=== PATIENT | female | born 1960 | race Caucasian/White ===

== ENCOUNTER 2020-03-25 08:10 | Outpatient (CLI) | payer OTHER, SELFPAY ==
--- NOTE | ~2020-03-25 | MM_ITS ---
EXAMINATION: MM screening shanna BI w sally HISTORY: Screening TECHNIQUE: Craniocaudal and mediolateral oblique 3-D tomosynthesis images were obtained and synthetic 2-D images were generated. CAD analysis was submitted and interpreted. COMPARISON: Comparison to multiple prior studies sequentially, with oldest reviewed study dated 09/03. BREAST PARENCHYMAL COMPOSITION: There are scattered areas of fibroglandular density. FINDINGS: There is no evidence of suspicious mass, calcification, or architectural distortion to sugg est malignancy in either breast. There has been no suspicious interval change. IMPRESSION: 1. No mammographic evidence of malignancy. 2. Recommend routine screening mammography in one year. BI-RADS Category 1: Negative Reviewed, dictated and finalized at location A.
== END 2020-03-25 08:11 | disposition home or self-care (01) ==
LOC: ANHIMG 08:13
PROVIDERS: PCP Nurse Practitioner Adult Health; Visit Provider Nurse Practitioner Adult Health
DX: Z12.31 Encounter for screening mammogram for malignant neoplasm of breast (principal)
CPT/HCPCS: 77063; 77067

== ENCOUNTER → 2020-09-10 15:59 | Outpatient (CLI) | payer OTHER, SELFPAY ==
--- NOTE | ~2020-09-10 | US_ITS ---
EXAMINATION: US soft tissue head and neck DATE: 09/10/2020 16:23 INDICATION: Right supraclavicular lump. TECHNIQUE: Multiple grayscale and Doppler ultrasound images of the right neck were obtained. COMPARISON: None FINDINGS: There is no abnormal mass or lymphadenopathy in the patient's area of concern in the right supraclavicular region. IMPRESSION: 1. No abnormal mass or lymphadenopathy in the patient's area of concern in the right supraclavicular region. Reviewed, dictated and finalized at location B. PER BEATER
== END ==
PROVIDERS: PCP Nurse Practitioner Adult Health; Visit Provider Nurse Practitioner Adult Health
DX: M79.9 Soft tissue disorder, unspecified (principal)
CPT/HCPCS: 76536

== ENCOUNTER → 2021-07-09 16:09 | Outpatient (CLI) | payer OTHER, SELFPAY ==
--- NOTE | ~2021-07-09 | MM_ITS ---
EXAMINATION: MM screening shanna BI w sally HISTORY: Screening mammogram TECHNIQUE: Craniocaudal and mediolateral oblique 3-D tomosynthesis images were obtained and synthetic 2-D images were generated. CAD analysis was submitted and interpreted. COMPARISON: 10/24/1999200903/20/2019, 03/10/2018 bilateral screening mammogram examinations BREAST PARENCHYMAL COMPOSITION: There are scattered areas of fibroglandular density. FINDINGS: There is no evidence of suspicious mass, calcification, or architectural distortion to sugg est malignancy in either breast. There has been no suspicious interval change. IMPRESSION: 1. No mammographic evidence of malignancy. 2. Recommend routine screening mammography in one year. BI-RADS Category 1: Negative Reviewed, dictated and finalized at location A. RERS HELPER
== END ==
PROVIDERS: PCP Nurse Practitioner Adult Health; Visit Provider Nurse Practitioner
DX: Z12.31 Encounter for screening mammogram for malignant neoplasm of breast (principal)
CPT/HCPCS: 77063; 77067

== ENCOUNTER 2022-10-06 16:32 | Outpatient (CLI) | payer OTHER, SELFPAY ==
--- NOTE | ~2022-10-06 | DEXA_ITS ---
Bone Density Report Name: VALORIE HENDRICKS Age: 62 Sex: Female Ethnicity: White Date of : 1960 Indication: postmenopausal; screening for osteoporosis; height loss; prior fracture; Referring Provider: LEDA, DASHAWN Study: Bone densitometry was performed. Exam Date: October 06, 2022 Accession number: [id number] Bone Density: Region BMD T-score Z-score Classification AP Spine(L1-L4) 0.859 -1.7 -0.1 Osteopenia Femoral Neck (Left) 0.781 -0.6 0.8 Normal Total Hip (Left) 0.994 0.4 1.5 Normal Femoral Neck (Right) 0.707 -1.3 0.1 Osteopenia Total Hip (Right) 0.894 -0.4 0.7 Normal Total Hip Mean 0.944 0.0 1.1 Normal World Health Organization criteria for BMD impression classify patients as: Normal (T-score at or above -1.0), Osteopenia (T-score between -1.0 and -2.5), or Osteoporosis (T-score at or below -2.5). 10-year Fracture Risk(1): Major Osteoporotic Fracture 12% Hip Fracture 0.9% Reported Risk Factors: [place] (), Neck BMD=0.707, BMI=36.3, previous fracture (1) FRAX(R) Version 3.08. Fracture probability calculated for an untreated patient. Fracture probability may be lower if the patient has received treatment. Clinical Information Provided by Patient: Has had a low trauma fracture Has used the following medications: Vitamin D Patient maximum height was 62 Menopause Age: 54 No regular weight bearing exercise Drinks caffeinated beverages Onset of menses at age 12 Number of children 1 Impression: The patient has low bone mass, based on the Total Spine T-score. The patient has an estimated ten-year risk of hip fracture of 0.9% and an estimated ten-year risk of major fracture of 12%, based on the WHO FRAX algorithm. The patient has risk factors, including: previous fracture. Discussion: BONE DENSITY IS LOW AT ONE OR MORE SKELETAL SITES. This patient's lowest T-score is low at one or more skeletal sites. It meets the World Health Organization's (WHO) criteria for ?low bone mass? (T-score between -1.0 and -2.5). The patient's 10-year risk of fracture as calculated by FRAX is less than the threshold where pharmacological therapy is recommended by the National Osteoporosis Foundation (NOF). However, all treatment decisions require clinical judgment and consideration of individual patient factors, including patient preferences, comorbidities, previous drug use, risk factors not captured in the FRAX model (e.g., frailty, falls, vitamin D deficiency, increased bone turnover, interval significant decline in bone density) and possible under or overestimation of fracture risk by FRAX. The patient should follow a healthful lifestyle (good nutrition with adequate calcium and vitamin D, and appropriate weight-bearing exercise). Follow-Up: Consider repeating this stud
--- NOTE | ~2022-10-06 | MM_ITS ---
EXAMINATION: MM screening shanna BI w sally HISTORY: Screening mammogram TECHNIQUE: Craniocaudal and mediolateral oblique 3-D tomosynthesis images were obtained and synthetic 2-D images were generated. CAD analysis was submitted and interpreted. COMPARISON: No prior mammogram is available for comparison at this institution. BREAST PARENCHYMAL COMPOSITION: There are scattered areas of fibroglandular density. FINDINGS: There is no evidence of suspicious mass, calcification, or architectural distortion to sugg est malignancy in either breast. There has been no suspicious interval change. IMPRESSION: 1. No mammographic evidence of malignancy. 2. Recommend routine screening mammography in one year. BI-RADS Category 1: Negative Reviewed, dictated and finalized at location A. DENTIAL TREATMENT SPECIALIST
== END 2022-10-06 16:33 | disposition home or self-care (01) ==
PROVIDERS: PCP Nurse Practitioner Adult Health; Visit Provider Nurse Practitioner
DX: Z12.31 Encounter for screening mammogram for malignant neoplasm of breast (principal); M85.88 Other specified disorders of bone density and structure, other site; M85.851 Other specified disorders of bone density and structure, right thigh
CPT/HCPCS: 77063; 77067; 77080

== ENCOUNTER 2022-11-18 08:02 | Emergency (ER) | payer OTHER, SELFPAY ==
[2022-11-18 08:08] VITALS: BP 133/74; PULSE 75; RESP 16; TEMP 36.4; O2SAT 100
--- NOTE | 2022-11-18 08:13 | ED.EYEPROB ---
HPI - Eye Problem General Chief complaint: Eye Problems Stated complaint: Eye Problem Time Seen by Provider: 11/18/22 08:14 Source: patient, RN notes reviewed and old records reviewed Mode of arrival: ambulatory Limitations: no limitations History of Present Illness HPI Narrative: 62-year-old female who presents to [facility] with complaints of left eye irritation redness and drainage of yellowish green which started last night. 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 Patient states she has been using warm compresses to her eyes for comfort measures and to remove drainage. Patient states this morning she notices also that the right eye his starting to get red but has not had any drainage from right eye yet. visual acuity 20/40 bilateral eyes without use of contacts which she removed last night. MD chief complaint: eye redness and other (Drainage) Onset (ago): day(s) (Last night) Onset description: sudden Severity scale (1-10): 4 Treatments Prior to Arrival: other (Warm compresses) Related Data Home Medications Medication Instructions Recorded Confirmed atorvastatin 10 mg tablet 10 mg PO DAILY 06/11/20 11/18/22 ergocalciferol (vitamin D2) 1,250 50,000 unit PO WEEKLY 06/11/20 11/18/22 mcg (50,000 unit) capsule hydrochlorothiazide 12.5 mg tablet 12.5 mg PO DAILY 06/11/20 11/18/22 hydroxychloroquine 200 mg tablet 200 mg PO BID 06/11/20 11/18/22 (Plaquenil) levothyroxine 88 mcg tablet 88 mcg PO DAILY 06/11/20 11/18/22 metoprolol tartrate 25 mg tablet 12.5 mg PO DAILY 06/11/20 11/18/22 olmesartan 40 mg tablet 40 mg PO DAILY 06/11/20 11/18/22 Allergies Allergy/AdvReac Type Severity Reaction Status Date / Time ciprofloxacin [From Cipro] AdvReac Intermediate Nausea and Verified 11/18/22 08:18 Vomiting Review of Systems Review of Systems: CONSTITUTIONAL: Denies fever, chills, or sweats. EYES: Denies visual changes. Reports redness,, irritation, discharge to bilateral eyes, especially left. ENT: Denies rhinorrhea, congestion, sore throat, or otalgia. CARDIOVASCULAR: Denies chest pain, palpitations, or edema. RESPIRATORY: Denies cough or dyspnea. SKIN: Denies rash or itching. NEUROLOGIC: Denies headache All systems reviewed & are unremarkable except as noted in HPI and below PMFSH Past Medical History Medical History Hypertension Family History Family History Father Carcinoma of colon Patient's father is Mother Family history of malignant neoplasm of breast in first degree relative Patient's mother is Social History Social History Smoking status: Never smoker Alcohol intake: never Substance use: never Substance use type: does not use Comments At time of signature, agree with nursing past medical, surgical, social and family history. There is no relevant family history pertinent to the presenting complaint Exam Narrative: GENERAL: Well-appearing, well-nourished, and in no acute distress. HEAD: Normocephalic, atraumatic. EYES: PERRLA and EOMI. Upper and lower eyelids unremarkable. No periorbital cellulitis noted. Sclera and conjunctivae injected bilateral eyes with yellow greenish drainage from left eye ENT: Nares clear, no rhinorrhea or epistaxis. Mucous membranes moist. NECK: Supple.no lymphadenopathy CHEST: Clear to auscultation. No respiratory distress. HEART: Regular rate and rhythm. No murmur heard. Normal peripheral pulses. SKIN: Warm, dry, no rash. NEURO: No focal deficits. Alert and oriented x3. Course Course Emergency Course: Patient is aware of diagnosis, understands and agrees to treatment plan. Anticipatory guidance given. Patient agrees to follow-up as directed and is aware of reasons to seek care at the emergency department. Portions of this record may h
== END 2022-11-18 08:30 | disposition home or self-care (01) ==
PROVIDERS: Emergency Provider Registered Nurse; PCP Family Medicine
DX: H10.33 Unspecified acute conjunctivitis, bilateral (principal); I10 Essential (primary) hypertension
CPT/HCPCS: 99213; G0463

== ENCOUNTER 2023-02-24 15:40 | Outpatient (CLI) | payer OTHER, SELFPAY ==
[2023-02-24 16:25] LABS: Kit Draw Collected
== END 2023-02-24 15:41 | disposition home or self-care (01) ==
LOC: ANHGOSHLAB 15:41
PROVIDERS: PCP Internal Medicine; Visit Provider Clinical Nurse Specialist
DX: R82.998 Other abnormal findings in urine (principal)
CPT/HCPCS: 36415

== ENCOUNTER 2023-08-13 11:20 | Outpatient (CLI) | payer OTHER, SELFPAY ==
[2023-08-13 15:04] LABS: Basophils Absolute Auto 0.1 K/mm3 (0.0-0.1); Eosinophils Absolute Auto 0.1 K/mm3 (0-0.3); Eosinophils Percent Auto 2.2 % (0-4.4); Hematocrit 42.7 % (37.0-47.0); Hemoglobin 13.5 g/dL (12.0-15.0); Immature Granulocyte Absolute 0.01 K/mm3 (0.00-0.031); Immature Granulocyte Percent A 0.2 % (0-0.5); Lymphocytes Absolute Auto 1.32 K/mm3 (0.9-3.2); Lymphocytes Percent Auto 26.1 % (18.3-44.2); Mean Corpuscular HGB Conc 31.6 g/dl (32-36); Mean Corpuscular Hemoglobin 34.4 pg (26-34); Mean Corpuscular Volume 108.9 fl (80-100); Mean Platelet Volume 10.1 fl (7.4-10.4); Monocytes Absolute Auto 0.6 K/mm3 (0.1-0.6); Monocytes Percent Auto 11.7 % (2.6-8.5); Neutrophils Percent Auto 58.8 % (45.5-73.1); Platelet Count Result 273 k/mm3 (150-375); Red Blood Count 3.92 M/mm3 (4.2-5.4); Red Cell Distribution Width 12.2 % (11.5-14.5); White Blood Count 5.1 K/mm3 (4.5-10.0)
[2023-08-13 18:27] LABS: Alanine Aminotransferase 29 U/L (6-35); Albumin Level 4.6 g/dL (3.5-5.1); Alkaline Phosphatase 72 U/L (38-126); Anion Gap 10 mmol/L (8-16); Aspartate Amino Transferase 35 U/L (14-36); Bilirubin,Total 0.7 mg/dL (0.2-1.3); Blood Urea Nitrogen 20 mg/dL (7-17); CRP < 0.5 mg/dL (<1.0); Carbon Dioxide 30 mmol/L (22-30); Chloride 101 mmol/L (98-107); Estimated Glomerular Filt Rate > 60; Glucose 86 mg/dL (65-110); Potassium 3.7 mmol/L (3.4-5.0); Sodium 141 mmol/L (137-145)
[2023-08-13 19:44] LABS: Vitamin D 25 Hydroxy 45.5 ng/mL
== END 2023-08-13 11:21 | disposition home or self-care (01) ==
LOC: ANHGOSHLAB 11:25
PROVIDERS: PCP Internal Medicine
DX: M77.9 Enthesopathy, unspecified (principal); Z79.899 Other long term (current) drug therapy; I73.00 Raynaud's syndrome without gangrene; M06.09 Rheumatoid arthritis without rheumatoid factor, multiple sites
CPT/HCPCS: 36415; 80053; 82306; 85025; 86140

== ENCOUNTER 2023-11-09 16:17 | Outpatient (CLI) | payer OTHER, SELFPAY ==
--- NOTE | ~2023-11-09 | MM_ITS ---
EXAMINATION: MM screening shanna BI w sally HISTORY: Screening TECHNIQUE: Craniocaudal and mediolateral oblique 3-D tomosynthesis images were obtained and synthetic 2-D images were generated. CAD analysis was submitted and interpreted. COMPARISON: Comparison to multiple prior studies sequentially, with oldest reviewed study dated 03/08. BREAST PARENCHYMAL COMPOSITION: Not dense: There are scattered areas of fibroglandular density. FINDINGS: There is no evidence of suspicious mass, calcification, or architectural distortion to sugg est malignancy in either breast. There has been no suspicious interval change. IMPRESSION: 1. No mammographic evidence of malignancy. 2. Recommend routine screening mammography in one year. BI-RADS Category 1: Negative Reviewed, dictated and finalized at location A.
== END 2023-11-09 16:18 | disposition home or self-care (01) ==
PROVIDERS: PCP Internal Medicine; Visit Provider Nurse Practitioner
DX: Z12.31 Encounter for screening mammogram for malignant neoplasm of breast (principal)
CPT/HCPCS: 77063; 77067

== ENCOUNTER 2023-11-16 11:15 | Outpatient (CLI) | payer OTHER, SELFPAY ==
--- NOTE | ~2023-11-16 | XR_ITS ---
EXAMINATION: XR sternoclavicular joint BI INDICATION: Polyarthralgia TECHNIQUE: Three views of the sternoclavicular joints are obtained. COMPARISON: None available FINDINGS: Bone alignment is normal. There is no fracture. There is mild osteoarthritis of the sternoc lavicular joints. Orthopedic screws are noted in the bilateral mandibular bodies. IMPRESSION: 1. No acute osseous abnormality. Reviewed, dictated and finalized at location F.
--- NOTE | ~2023-11-16 | XR_ITS ---
XR hand LT 2V 11/16/2023 12:05 Indication: Polyarthralgias Procedure: 2 views left hand Comparison: No prior studies for comparison. Findings: There is mild polyarticular osteoarthritis. Osteopenia. No fracture or traumatic malalignme nt. No soft tissue abnormality. No foreign bodies. Impression: 1: Mild polyarticular osteoarthritis. Reviewed, dictated and finalized at location L. Impression: 1: Mild polyarticular osteoarthritis.
--- NOTE | ~2023-11-16 | XR_ITS ---
EXAMINATION: XR hand RT 2V INDICATION: Polyarthralgia TECHNIQUE: Two views of the right hand are obtained. COMPARISON: None available FINDINGS: Bone alignment is normal. There is no fracture. There is mild osteoarthritis of multiple in terphalangeal joints. The soft tissues are unremarkable. IMPRESSION: 1. Osteoarthritis without acute osseous abnormality. Reviewed, dictated and finalized at location F.
--- NOTE | ~2023-11-16 | XR_ITS ---
EXAMINATION: XR lumbar spine 2-3V DATE: 11/16/2023 12:05 INDICATION: Polyarthralgia TECHNIQUE: Anteroposterior and lateral views of the lumbar spine, and cone-down lateral view of the l umbosacral junction were obtained. COMPARISON: None. FINDINGS: There are 4 mm of anterolisthesis of L4 on L5 and 4 mm of retrolisthesis of L5 on S1. There is severe loss of intervertebral disc space height at L5-S1. There is mild loss of intervertebral di sc space height throughout the remainder of the lumbar spine. The vertebral body heights are maintain ed. There is moderate facet joint osteoarthritis of the lower lumbar spine. IMPRESSION: 1. Severe lower lumbar spondylosis. Reviewed, dictated and finalized at location F.
--- NOTE | ~2023-11-16 | XR_ITS ---
EXAMINATION: XR chest 2V 11/16/2023 12:05 INDICATION: TB screening PROCEDURE: 2 view chest COMPARISON: No prior studies for comparison. FINDINGS: The lungs are clear. The cardiomediastinal silhouette is within normal limits. There are no pleural effusions. There is no pneumothorax suspected. IMPRESSION: 1: NO ACUTE CARDIOPULMONARY DISEASE. Reviewed, dictated and finalized at location L.
--- NOTE | ~2023-11-16 | XR_ITS ---
EXAMINATION: XR sacroiliac joints min 3V INDICATION: Polyarthralgia TECHNIQUE: Three views of the sacroiliac joints are obtained. COMPARISON: None available FINDINGS: Bone alignment is normal. There is no fracture. No abnormal erosion or sclerosis of the sac roiliac joints. There is severe lumbar spondylosis at L5-S1. There is mild osteoarthritis of the hips . IMPRESSION: 1. Unremarkable sacroiliac joints. Reviewed, dictated and finalized at location F.
== END 2023-11-16 11:16 ==
PROVIDERS: Referring Provider Clinical Nurse Specialist; Visit Provider Physician Assistant Medical
DX: M25.50 Pain in unspecified joint (principal); Z11.1 Encounter for screening for respiratory tuberculosis; M19.041 Primary osteoarthritis, right hand; M47.896 Other spondylosis, lumbar region; M19.042 Primary osteoarthritis, left hand
CPT/HCPCS: 71046; 71130; 72100; 72202; 73120

== ENCOUNTER 2024-11-22 14:58 | Outpatient (CLI) | payer OTHER, SELFPAY ==
--- NOTE | ~2024-11-22 | DEXA_ITS ---
Bone Density Report Name: VALORIE HENDRICKS Age: 64 Sex: Female Ethnicity: White Date of : 1960 Indication: osteopenia; height loss; prior fracture; Referring Provider: LEDA*Martina, DASHAWN Study: Bone densitometry was performed. Exam Date: November 22, 2024 Accession number: [id number] Bone Density: Region BMD T-score Z-score Classification AP Spine(L1-L4) 0.857 -1.7 0.0 Osteopenia Femoral Neck (Left) 0.760 -0.8 0.7 Normal Total Hip (Left) 0.933 -0.1 1.1 Normal Femoral Neck (Right) 0.735 -1.0 0.4 Normal Total Hip (Right) 0.887 -0.5 0.7 Normal Total Hip Mean 0.910 -0.3 0.9 Normal World Health Organization criteria for BMD impression classify patients as: Normal (T-score at or above -1.0), Osteopenia (T-score between -1.0 and -2.5), or Osteoporosis (T-score at or below -2.5). 10-year Fracture Risk(1): Major Osteoporotic Fracture 12% Hip Fracture 0.8% Reported Risk Factors: [place] (), Neck BMD=0.735, BMI=37.2, previous fracture (1) FRAX(R) Version 3.08. Fracture probability calculated for an untreated patient. Fracture probability may be lower if the patient has received treatment. Previous Exams: Region Exam Age BMD T-score BMD Change BMD Change Date g/cm2 vs Baseline vs Previous AP Spine (L1-L4) 11/22/2024 64 0.857 -1.7 -0.057 (-6.2%) -0.003 (-0.3%) 10/06/2022 62 0.859 -1.7 -0.054 (-5.9%) -0.054 (-5.9%) 03/20/2019 58 0.914 -1.2 Total Hip(Left) 11/22/2024 64 0.933 -0.1 -0.084 (-8.3%) -0.061 (-6.1%) 10/06/2022 62 0.994 0.4 -0.023 (-2.3%) -0.023 (-2.3%) 03/20/2019 58 1.017 0.6 Total Hip(Right) 11/22/2024 64 0.887 -0.5 -0.048 (-5.1%) -0.008 (-0.8%) 10/06/2022 62 0.894 -0.4 -0.040 (-4.3%) -0.040 (-4.3%) 03/20/2019 58 0.934 -0.1 *Denotes significance at 95% confidence level, LSC for AP Spine = 0.022 g/cm2, LSC for Total Hip = 0.027 g/cm2 # Denotes dissimilar scan types or analysis methods Clinical Information Provided by Patient: Has had a low trauma fracture Has used the following medications: Vitamin D Patient maximum height was 62 Menopause Age: 54 No regular weight bearing exercise Drinks caffeinated beverages Onset of menses at age 12 Number of children 1 Impression: The patient has low bone mass, based on the Total Spine T-score. The patient has an estimated ten-year risk of hip fracture of 0.8% and an estimated ten-year risk of major fracture of 12%, based on the WHO FRAX algorithm. The patient has risk factors, including: previous fracture. No significant bone loss was observed. Discussion: BONE DENSITY IS LOW AT ONE OR MORE SKELETAL SITES. This patient's lowest T-score is low at one or more skeletal sites. It meets the World Health Organization's (WHO) criteria for ?low bone mass? (T-score between -1.0 and -2.5). The patient's 10-year risk of fracture as calculated by FRAX is less than the threshold where pharmacological therapy is recommended by the National Osteoporosis Foundation (NOF). However, all treatment decisions require clinical judgment and consideration of individual patient factors, including patient preferences, comorbidities, previous drug use, risk factors not captured in the FRAX model (e.g., frailty, falls, vitamin D deficiency, increased bone turnover, interval significant decline in bone density) and possible under or overestimation of fracture risk by FRAX. The patient should follow a healthful lifestyle (good nutrition with adequate calcium and vitamin D, and appropriate weight-bearing exercise). Follow-Up: Consider repeating this study in 2 to 3 years to reassess this patient's status, or sooner if there is some new clinical indication. Reported by: CHELA on 11/22/2024 3:29:00 PM. Reviewed, dictated and finalized at location ASimon LEWIS
--- NOTE | ~2024-11-22 | MM_ITS ---
EXAMINATION: MM screening shanna BI w sally HISTORY: Screening TECHNIQUE: Craniocaudal and mediolateral oblique 3-D tomosynthesis images were obtained and synthetic 2-D images were generated. CAD analysis was submitted and interpreted. COMPARISON: Comparison to multiple prior studies sequentially, with oldest reviewed study dated 03/10. BREAST PARENCHYMAL COMPOSITION: Not dense: There are scattered areas of fibroglandular density. FINDINGS: There is no evidence of suspicious mass, calcification, or architectural distortion to sugg est malignancy in either breast. There has been no suspicious interval change. IMPRESSION: 1. No mammographic evidence of malignancy. 2. Recommend routine screening mammography in one year. BI-RADS Category 1: Negative Reviewed, dictated and finalized at location A.
--- OUTSIDE RECORDS SUMMARY | 2024-11-22 16:20 | XMS_ITS | Continuity of Care Document ---
Author Organization [facility] Address [address] [place] [address] [address] [place] [address] Phone Care Team Providers Care Split Leather Mosser Name Role Phone Kash Green MD Unavailable [...] Visual Field Examination(s) SCODI, Retina Office/outpatient Visit, [facility] Advance Directives Directive Yes / No Effective Date File Name No Information Encounters Encounter Description Practice Location Reason(s) For Visit Diagnoses Date Provider Providers Copied on Encounter [facility], [address], [place], [place], [id number], [place] tel:[phone] [facility] ROSS Professional Complete Exam (chief complaint) High risk medication useOptic cupping of both eyesAge-relat ed nuclear cataract, bilateralPunc mcneill keratitis, left eye Fe-0 1 Peter Hewitt. [address] [facility], [address], [place], [place], [id number], [place]. tel:[phone] Specialist : Beatrice Calderon MD, [address], [place], [address]. tel:[phone] er Provider: Beatrice Calderon MD, [address] [place] [address], [address]. tel:[phone] erring Provider: Kash Andrews, [address] [facility] [address], [place], [address] . tel:[phone] Office/outpa tient Visit, [facility], [id number] [place] [address] [address], [place], [place], [id number], [place] tel:[phone] SEC [place] Professional evaluation (chief complaint) High risk medication useAge-relate d nuclear cataract, bilateralLesi on of right eyelidOptic cupping of both eyes 0 Peter Hewitt. [address] [facility], [address], [place], [place], [address], [place]. tel:[phone] Specialist : Beatrice Calderon MD, [address] [address], [place], [address]. tel:[phone] er Provider: Beatrice Calderon MD, [address] [address], [place], [address]. tel:[phone] erring Provider: Kash Andrews, [address] [facility] [address], [place], [address] . tel:[phone] [facility], [address], [place], [place], [id number], [place] tel:[phone] [facility] Professional No Information 0 Peter Hewitt. [address] [facility], [address], [place], [place], [address], [place]. tel:[phone] Family History Family Member Type Diagnosis Age At Onset Problem (finding) Family history of Retin al disease Problem (finding) Family history of glauc leatha Payers Payer name Insurance type Covered alliance party ID Authorguillermina patrick(s) [facility] Commercial CI [id number] Social History Type Description Quantity Date Captured [...]
--- OUTSIDE RECORDS SUMMARY | 2024-11-22 16:20 | XMS_ITS | Data Portability ---
Author Organization [place] [facility], Main Office Address [address] [place] [address] Care Team Providers Care Stunt Person Name Role Phone OSMANI MCCARTHY Primary Care Provider OSMANI MCCARTHY Referring Provider Assessment Encounter Date Assessment Date Assessment LastModified by Organization Details LastModified Time 11/03/2022 11/03/2022 62 yo F with - WELL ADULT VISIT - HTN - HLD - HYPOTHYROIDISM - RA - VIT D DEFICIENCY - OBSITY II Wt: 188(11/03/22) D/w pt in detail about her conditions and further plan of care. Will do routine labs. Meds as directed. Diet and exercise explained in detail. BP diary education given and call us if any concerns. Cont f/u with Rheumat at [facility] as per schedule. Cont f/u with Gyne as per schedule. HM: WWE - 08/13, normal as per pt. Cont f/u with Gyne as per schedule. Mammo - 10/15, normal as per pt. Colonoscopy - Pt to find out. DEXA - 10/15, normal as per pt. Flu - 06/13. Tdap - 2018. Pneumo - Pt declined. Shingrix - Pt got 2 shots. F/u in 1 month. Annual labs in 11/13. [email or web address] Not available 11/03/2022 17:59:45 12/01/2022 12/01/2022 62 yo F with - WT LOSS PROGRAM - HTN - HLD - HYPOTHYROIDISM - RA - VIT D DEFICIENCY - OBSITY I Annual labs: 11/23/22. Wt: 188(11/03/22) - 184(12/01/22) D/w pt in detail about her conditions, recent labs and further plan of care. Pt wants to continue Phentermine for few more months. Meds as directed. Diet and exercise explained in detail. BP diary education given and call us if any concerns. Cont f/u with Rheumat at [facility] as per schedule. Cont f/u with Gyne as per schedule. HM: WWE - 08/13, normal as per pt. Cont f/u with Gyne as per schedule. Mammo - 10/15, normal as per pt. Colonoscopy - 5 yrs ago. F/u with GI in few months. DEXA - 10/15, normal as per pt. Flu - 06/13. Tdap - 2018. Pneumo - Pt declined. Shingrix - Pt got 2 shots. F/u in 3 months. Annual labs in 11/13. [email or web address] Not available 12/01/2022 17:32:38 Plan of Treatment Reminders Order Date Submit Date Provider Last Modified By Organization Details Last Modified Time Details Appointments None recorded. Lab HbA1c (hemoglobin A1c), blood 2022 023 [facility], 2022 Taylor Zhao, [address], [place], [address], 3 01:32:37 CBC w/ auto diff 2022 023 [facility], 2022 Taylor Zhao, [address], [place], [address], 3 01:32:34 CMP, serum or plasma 2022 023 [facility], 2022 Taylor Zhao, [address], [place], [address], 3 01:32:33 lipid panel, serum 2022 023 [facility], 2022 Taylor Zhao, [address], [place], [address], 3 01:32:31 TSH, serum, reflex free T4 [email or web address] [place] [address], 2022 Taylor Zhao, [address], [place], [address], 08:46:47 urinalysis complete, reflex culture 2022 023 [facility], 2022 Taylor Zhao, [address], [address], 01:32:35 Referral None recorded. Procedures None recorded. Surgeries None recorded. Imaging None recorded. Medication Orders phentermine 37.5 mg tablet 2022 023 [id number], [address], [place], [id number], 17:24:42 metoprolol succinate ER 25 mg tablet,exte nded release 24 hr 2022 023 [facility], [address] [place] [address], [address], 3 17:24:33 olmesartan 40 mg-hydrochl orothiazide 12.5 mg tablet 2022 023 [facility], [address] [place] [address], [address], 3 17:24:36 levothyroxi ne 75 mcg tablet 2022 023 [facility], [address] [place] [address], [address], 3 17:24:36 atorvastati n 10 mg tablet 2022 023 [facility], [address] [place] [address], [address], 3 17:24:33 phentermine 37.5 mg tablet 2022 023 [facility], [address], [place], [id number], 17:42:38 Wegovy 0.25 mg/0.5 mL subcutaneou s pen injector 2022 023 [facility], [address] [place] [address], [address], 3 17:42:19 metoprolol succinate ER 25 mg tablet,exte nded release 24 hr 2022 023 [email or web address] [facility], [address] [place] [address], [address], 3 12:10:16 olmesartan 40 mg-hydrochl orothiazide 12.5 mg tablet 2022 023 [facility], [address] [place] [address], [address], 3 17:42:22 levothyroxi ne 75 mcg tablet 2022 023 [facility], [address] [place] [address], [place], [address], 3 17:42:19 atorvastati n 10 mg tablet 2022 023 [facility], [address] [place] [address], [address], 3 17:42:23 Patient TargetsNo targets recorded. Patient InstructionsNo instructions recorded. Reason for Referral None Reported. Results Created Date Observation Date Name Description Value Unit Range Abnormal Flag Note LastModifiedBy Organization Detail LastModifiedTime 06/06/20 22 06/09/2022 TSH TSH 1.65 mIU/L 0.40-4 .50 normal Not Available [facility] [address] [place], [address], 06/09/2022 03:57:46 06/06/20 22 06/09/2022 CBC (INCL UDES DIFF/ PLT) MCH 33.7 pg 27.0-3 3.0 high Not Available [address], [address], 06/09/2022 03:57:46 06/06/2006/09/2022 CBC (INCL UDES DIFF/ PLT) hemoglobin 12.8 g/dL 11.7-1 5.5 normal Not Available [address], [address], 06/09/2022 03:57:46 06/06/2006/09/2022 CBC (INCL UDES DIFF/ PLT) hematocrit 38.5 % 35.0-4 5.0 normal Not Available [address], [address], 06/09/2022 03:57:46 06/06/20 22 06/09/2022 CBC (INCL UDES DIFF/ PLT) MCV 101.3 fL 80.0-1 00.0 high Not Available [address], [address], 06/09/2022 03:57:46 06/06/2006/09/2022 CBC (INCL UDES DIFF/ PLT) MCHC 33.2 g/dL 32.0-3 6.0 normal Not Available [address], [address], 06/09/2022 03:57:46 06/06/20 22 06/09/2022 CBC (INCL UDES DIFF/ PLT) RDW 11.5 % 11.0-1 5.0 normal Not Available [address], [address], 06/09/2022 03:57:46 06/06/2006/09/2022 CBC (INCL UDES DIFF/ PLT) platelet count 242 thous and/u L 140-40 0 normal Not Available [address], [address], 06/09/2022 03:57:46 06/06/20 22 06/09/2022 CBC (INCL UDES DIFF/ PLT) MPV 9.9 fL 7.5-12 .5 normal Not Available [address], [address], 06/09/2022 03:57:46 06/06/2006/09/2022 CBC (INCL UDES DIFF/ PLT) absolute neutrophils 1897 cells /uL 1500-7 800 normal Not Available [address], [address], 06/09/2022 03:57:46 06/06/2006/09/2022 CBC (INCL UDES DIFF/ PLT) absolute lymphocytes 1106 cells /uL 850-39 00 normal Not Available [address], [address], 06/09/2022 03:57:46 06/06/2006/09/2022 CBC (INCL UDES DIFF/ PLT) absolute monocytes 329 cells /uL 200-95 0 normal Not Available [address], [address], 06/09/2022 03:57:46 06/06/20 22 06/09/2022 CBC (INCL UDES DIFF/ PLT) absolute eosinophils 130 cells /uL 15-500 normal Not Available [address], [address], 06/09/2022 03:57:46 06/06/20 22 06/09/2022 CBC (INCL UDES DIFF/ PLT) absolute basophils 39 cells /uL 0-200 normal Not Available [address], [address], 06/09/2022 03:57:46 06/06/20 22 06/09/2022 CBC (INCL UDES DIFF/ PLT) neutrophils 54.2 % normal Not Available [address] [place], [address], 06/09/2022 03:57:46 06/06/20 22 06/09/2022 CBC (INCL UDES DIFF/ PLT) lymphocytes 31.6 % normal Not Available [address], [address], 06/09/2022 03:57:46 06/06/2006/09/2022 CBC (INCL UDES DIFF/ PLT) monocytes 9.4 % normal Not Available [address], [address], 06/09/2022 03:57:46 06/06/2006/09/2022 CBC (INCL UDES DIFF/ PLT) eosinophils 3.7 % normal Not Available [address], [address], 06/09/2022 03:57:46 06/06/2006/09/2022 CBC (INCL UDES DIFF/ PLT) basophils 1.1 % normal Not Available [address], [address], 06/09/2022 03:57:46 06/06/2006/09/2022 CBC (INCL UDES DIFF/ PLT) white blood cell count 3.5 thous and/u L 3.8-10 .8 low Not Available [address], [address], 06/09/2022 03:57:46 06/06/20 22 06/09/2022 CBC (INCL UDES DIFF/ PLT) red blood cell count 3.80 stacie on/uL 3.80-5 .10 normal Not Available [address], [address], 06/09/2022 03:57:46 06/06/20 22 06/09/2022 SED RATE BY MODIF IED GREER MUNSONREN sed rate by modified westergren 2 mm/h < or = 30 normal Not Available [address], [address], 06/09/2022 03:57:45 06/06/2006/09/2022 BASIC METAB OLIC PANEL sodium 142 mmol/ L 135-14 6 normal Not Available [address], [address], 06/09/2022 03:57:45 06/06/2006/09/2022 BASIC METAB OLIC PANEL glucose 89 mg/dL 65-99 normal Fasti ng refer ence inter monty Not Available [address], [address], 06/09/2022 03:57:45 06/06/2006/09/2022 BASIC METAB OLIC PANEL urea nitrogen (BUN) 20 mg/dL 7-25 normal Not Available [address], [address], 06/09/2022 03:57:45 06/06/2006/09/2022 BASIC METAB OLIC PANEL creatinine 0.75 mg/dL 0.50-1 .05 normal Not Available [address], [address], 06/09/2022 03:57:45 06/06/2006/09/2022 BASIC METAB OLIC PANEL eGFR 91 mL/mi n/1.7 3m2 > or = 60 normal The eGFR is based on the CKD-E PI 2020 equat ion. To calcu late the new eGFR from a previ ous Creat inine or Cysta kraig C macho t, go to https ://treasure munson/criss fox/ kdoqi /gfr% 5Fcal culat or Not Available [address], [address], 06/09/2022 03:57:45 06/06/20 22 06/09/2022 BASIC METAB OLIC PANEL BUN/creatini ne ratio not applic able (calc ) 6-22 Not Available [address], [address], 06/09/2022 03:57:45 06/06/2006/09/2022 BASIC METAB OLIC PANEL potassium 4.4 mmol/ L 3.5-5. 3 normal Not Available [address], [address], 06/09/2022 03:57:45 06/06/2006/09/2022 BASIC METAB OLIC PANEL chloride 104 mmol/ L 98-110 normal Not Available [address], [address], 06/09/2022 03:57:45 06/06/2006/09/2022 BASIC METAB OLIC PANEL carbon dioxide 33 mmol/ L 20-32 high Not Available [address], [address], 06/09/2022 03:57:45 06/06/2006/09/2022 BASIC METAB OLIC PANEL calcium 9.8 mg/dL 8.6-10 .4 normal Not Available [address], [address], 06/09/2022 03:57:45 06/06/2006/09/2022 URIC ACID uric acid 5.4 mg/dL 2.5-7. 0 normal Thera peuti c targe t for gout patie nts: <6.0 mg/dL Not Available [address], [address], 06/09/2022 03:57:43 11/24/19 23 11/25/2022 LIPID PANEL , [place] cholesterol, total 184 mg/dL <200 normal Not Available [address], [address], 11/25/2022 01:32:28 11/24/19 23 11/25/2022 LIPID PANEL , [place] HDL cholesterol 77 mg/dL > or = 50 normal Not Available [address], [address], 11/25/2022 01:32:28 11/24/19 23 11/25/2022 LIPID PANEL , [place] triglyceride s 107 mg/dL <150 normal Not Available [address], [address], 11/25/2022 01:32:28 11/24/19 23 11/25/2022 LIPID PANEL , [place] LDL-choleste rol 87 mg/dL _(chio c) normal Refer ence range : <100 Juan able range <100 mg/dL for prima ry preve ntion ; <70 mg/dL for patie nts with CHD or diabe tic patie nts with > or = 2 CHD risk facto rs. LDL-C is now calcu lated using the Kayla n-Hop kins calcu latglenna n, which is a valid ated novel corby renee acrefugio than the Fried ela equat ion in the estim ation of LDL-C . Kayla strong SS et al. ALFONZO. 2013; 310(1 9): 2061- 2068 (http ://ed ucati on.Karoline tate Qualvu. com/f aq/FA Q164) Not Available [address], [address], 11/25/2022 01:32:28 11/24/19 23 11/25/2022 LIPID PANEL , [place] chol/HDLC ratio 2.4 (calc ) <5.0 normal Not Available [address], [address], 11/25/2022 01:32:28 11/24/19 23 11/25/2022 LIPID PANEL , [place] non HDL cholesterol 107 mg/dL _(chio c) <130 normal For patie nts with diabe omar plus 1 major ASCVD risk facto r, treat ing to a non-H DL-C goal of <100 mg/dL (LDL- C of <70 mg/dL ) is candacei nette amato optio n. Not Available [address] [address] [place], [address], 11/25/2022 01:32:28 11/24/19 23 11/25/2022 COMPR EHENS CHETAN METAB OLIC PANEL glucose 81 mg/dL 65-99 normal Fasti ng refer ence inter monty Not Available [facility] [address] [address] [place], [address], 11/25/2022 01:32:33 11/24/1911/25/2022 COMPR EHENS CHETAN METAB OLIC PANEL urea nitrogen (BUN) 22 mg/dL 7-25 normal Not Available [address] [address] [place], [address], 11/25/2022 01:32:33 11/24/19 23 11/25/2022 COMPR EHENS CHETAN METAB OLIC PANEL creatinine 0.85 mg/dL 0.50-1 .05 normal Not Available [address] [address] [place], [address], 11/25/2022 01:32:33 11/24/1911/25/2022 COMPR EHENS CHETAN METAB OLIC PANEL eGFR 77 mL/mi n/1.7 3m2 > or = 60 normal The eGFR is based on the CKD-E PI 2020 savannahat ion. To calcu late the new eGFR from a previ ous Creat inpriyanka or Cystmaida cornell C resul t, go to https ://treasure mnuson/criss fox/ kdoqi /gfr% 5Fcal culat or Not Available [address] [address] [place], [address], 11/25/2022 01:32:33 11/24/19 23 11/25/2022 COMPR EHENS CHETAN METAB OLIC PANEL BUN/creatini ne ratio NOT APPLIC ABLE (calc ) 6-22 Not Available [address], [address], 11/25/2022 01:32:33 11/24/19 23 11/25/2022 COMPR EHENS CHETAN METAB OLIC PANEL sodium 142 mmol/ L 135-14 6 normal Not Available [address], [address], 11/25/2022 01:32:33 11/24/19 23 11/25/2022 COMPR EHENS CHETAN METAB OLIC PANEL potassium 3.9 mmol/ L 3.5-5. 3 normal Not Available [address], [address], 11/25/2022 01:32:33 11/24/19 23 11/25/2022 COMPR EHENS CHETAN METAB OLIC PANEL chloride 102 mmol/ L 98-110 normal Not Available [address], [address], 11/25/2022 01:32:33 11/24/19 23 11/25/2022 COMPR EHENS CHETAN METAB OLIC PANEL carbon dioxide 29 mmol/ L 20-32 normal Not Available [address], [address], 11/25/2022 01:32:33 11/24/19 23 11/25/2022 COMPR EHENS CHETAN METAB OLIC PANEL calcium 9.8 mg/dL 8.6-10 .4 normal Not Available [address], [address], 11/25/2022 01:32:33 11/24/19 23 11/25/2022 COMPR EHENS CHETAN METAB OLIC PANEL protein, total 6.7 g/dL 6.1-8. 1 normal Not Available [address], [address], 11/25/2022 01:32:33 11/24/19 23 11/25/2022 COMPR EHENS CHETAN METAB OLIC PANEL albumin 4.9 g/dL 3.6-5. 1 normal Not Available [address], [address], 11/25/2022 01:32:33 11/24/19 23 11/25/2022 COMPR EHENS CHETAN METAB OLIC PANEL globulin 1.8 g/dL_ (calc ) 1.9-3. 7 low Not Available [address], [address], 11/25/2022 01:32:33 11/24/19 23 11/25/2022 COMPR EHENS CHETAN METAB OLIC PANEL albumin/glob ulin ratio 2.7 (calc ) 1.0-2. 5 high Not Available [address], [address], 11/25/2022 01:32:33 11/24/19 23 11/25/2022 COMPR EHENS CHETAN METAB OLIC PANEL bilirubin, total 0.6 mg/dL 0.2-1. 2 normal Not Available [address], [address], 11/25/2022 01:32:33 11/24/19 23 11/25/2022 COMPR EHENS CHETAN METAB OLIC PANEL alkaline phosphatase 70 U/L 37-153 normal Not Available [facility] [address], [address], 11/25/2022 01:32:33 11/24/19 23 11/25/2022 COMPR EHENS CHETAN METAB OLIC PANEL AST 17 U/L 10-35 normal Not Available [address], [address], 11/25/2022 01:32:33 11/24/19 23 11/25/2022 COMPR EHENS CHETAN METAB OLIC PANEL ALT 16 U/L 6-29 normal Not Available [address], [address], 11/25/2022 01:32:33 11/24/19 23 11/25/2022 CBC (INCL UDES DIFF/ PLT) white blood cell count 4.6 thous and/u L 3.8-10 .8 normal Not Available [address], [address], 11/25/2022 01:32:34 11/24/19 23 11/25/2022 CBC (INCL UDES DIFF/ PLT) red blood cell count 3.76 stacie on/uL 3.80-5 .10 low Not Available [address], [address], 11/25/2022 01:32:34 11/24/19 23 11/25/2022 CBC (INCL UDES DIFF/ PLT) hemoglobin 13.2 g/dL 11.7-1 5.5 normal Not Available [address], [address], 11/25/2022 01:32:34 11/24/19 23 11/25/2022 CBC (INCL UDES DIFF/ PLT) hematocrit 38.7 % 35.0-4 5.0 normal Not Available [address], [address], 11/25/2022 01:32:34 11/24/19 23 11/25/2022 CBC (INCL UDES DIFF/ PLT) MCV 102.9 fL 80.0-1 00.0 high Not Available [address], [address], 11/25/2022 01:32:34 11/24/19 23 11/25/2022 CBC (INCL UDES DIFF/ PLT) MCH 35.1 pg 27.0-3 3.0 high Not Available [address], [address], 11/25/2022 01:32:34 11/24/1911/25/2022 CBC (INCL UDES DIFF/ PLT) MCHC 34.1 g/dL 32.0-3 6.0 normal Not Available [address], [address], 11/25/2022 01:32:34 11/24/1911/25/2022 CBC (INCL UDES DIFF/ PLT) RDW 11.3 % 11.0-1 5.0 normal Not Available [address], [address], 11/25/2022 01:32:34 11/24/19 23 11/25/2022 CBC (INCL UDES DIFF/ PLT) platelet count 273 thous and/u L 140-40 0 normal Not Available [address], [address], 11/25/2022 01:32:34 11/24/1911/25/2022 CBC (INCL UDES DIFF/ PLT) MPV 9.4 fL 7.5-12 .5 normal Not Available [address], [address], 11/25/2022 01:32:34 11/24/19 23 11/25/2022 CBC (INCL UDES DIFF/ PLT) absolute neutrophils 2682 cells /uL 1500-7 800 normal Not Available [facility] [address], [address], 11/25/2022 01:32:34 11/24/19 23 11/25/2022 CBC (INCL UDES DIFF/ PLT) absolute lymphocytes 1293 cells /uL 850-39 00 normal Not Available [facility] [address], [address], 11/25/2022 01:32:34 11/24/19 23 11/25/2022 CBC (INCL UDES DIFF/ PLT) absolute monocytes 483 cells /uL 200-95 0 normal Not Available [facility] [address], [address], 11/25/2022 01:32:34 11/24/19 23 11/25/2022 CBC (INCL UDES DIFF/ PLT) absolute eosinophils 101 cells /uL 15-500 normal Not Available [facility] [address], [address], 11/25/2022 01:32:34 11/24/19 23 11/25/2022 CBC (INCL UDES DIFF/ PLT) absolute basophils 41 cells /uL 0-200 normal Not Available [facility] [address], [address], 11/25/2022 01:32:34 11/24/19 23 11/25/2022 CBC (INCL UDES DIFF/ PLT) neutrophils 58.3 % normal Not Available [facility] [address], [address], 11/25/2022 01:32:34 11/24/19 23 11/25/2022 CBC (INCL UDES DIFF/ PLT) lymphocytes 28.1 % normal Not Available [facility] [address], [address], 11/25/2022 01:32:34 11/24/19 23 11/25/2022 CBC (INCL UDES DIFF/ PLT) monocytes 10.5 % normal Not Available [facility] [address], [address], 11/25/2022 01:32:34 11/24/19 23 11/25/2022 CBC (INCL UDES DIFF/ PLT) eosinophils 2.2 % normal Not Available [facility] [address], [address], 11/25/2022 01:32:34 11/24/19 23 11/25/2022 CBC (INCL UDES DIFF/ PLT) basophils 0.9 % normal Not Available [address], [address], 11/25/2022 01:32:34 11/24/19 23 11/25/2022 URINA LYSIS , COMPL ETE W/REF RICHY TO CULTU RE color DARK YELLOW yellow normal Not Available [address], [address], 11/25/2022 01:32:35 11/24/19 23 11/25/2022 URINA LYSIS , COMPL ETE W/REF RICHY TO CULTU RE appearance CLEAR clear normal Not Available [address], [address], 11/25/2022 01:32:35 11/24/19 23 11/25/2022 URINA LYSIS , COMPL ETE W/REF RICHY TO CULTU RE specific gravity 1.036 1.001- 1.035 high Not Available [address], [address], 11/25/2022 01:32:35 11/24/19 23 11/25/2022 URINA LYSIS , COMPL ETE W/REF RICHY TO CULTU RE pH 5.5 5.0-8. 0 normal Not Available [address], [address], 11/25/2022 01:32:35 11/24/19 23 11/25/2022 URINA LYSIS , COMPL ETE W/REF RICHY TO CULTU RE glucose NEGATI VE negati ve normal Not Available [address], [address], 11/25/2022 01:32:35 11/24/19 23 11/25/2022 URINA LYSIS , COMPL ETE W/REF RICHY TO CULTU RE bilirubin NEGATI VE negati ve normal Not Available [facility] [address], [place], [address], 11/25/2022 01:32:35 11/24/19 23 11/25/2022 URINA LYSIS , COMPL ETE W/REF RICHY TO CULTU RE ketones TRACE negati ve abnormal Not Available [facility] [address], [address], 11/25/2022 01:32:35 11/24/19 23 11/25/2022 URINA LYSIS , COMPL ETE W/REF RICHY TO CULTU RE occult blood TRACE negati ve abnormal Not Available [facility] [address], [address], 11/25/2022 01:32:35 11/24/19 23 11/25/2022 URINA LYSIS , COMPL ETE W/REF RICHY TO CULTU RE protein 1+ negati ve abnormal Not Available [address], [address], 11/25/2022 01:32:35 11/24/19 23 11/25/2022 URINA LYSIS , COMPL ETE W/REF RICHY TO CULTU RE nitrite NEGATI VE negati ve normal Not Available [address], [address], 11/25/2022 01:32:35 11/24/19 23 11/25/2022 URINA LYSIS , COMPL ETE W/REF RICHY TO CULTU RE leukocyte esterase TRACE negati ve abnormal Not Available [facility] [address], [address], 11/25/2022 01:32:35 11/24/19 23 11/25/2022 URINA LYSIS , COMPL ETE W/REF RICHY TO CULTU RE WBC 0-5 /hpf < or = 5 normal Not Available [facility] [address], [address], 11/25/2022 01:32:35 11/24/19 23 11/25/2022 URINA LYSIS , COMPL ETE W/REF RICHY TO CULTU RE RBC 0-2 /hpf < or = 2 normal Not Available [address], [address], 11/25/2022 01:32:35 11/24/19 23 11/25/2022 URINA LYSIS , COMPL ETE W/REF RICHY TO CULTU RE squamous epithelial cells NONE SEEN /hpf < or = 5 normal Not Available [address], [address], 11/25/2022 01:32:35 11/24/19 23 11/25/2022 URINA LYSIS , COMPL ETE W/REF RICHY TO CULTU RE bacteria NONE SEEN /hpf none seen normal Not Available [address] [address] [place], [address], 11/25/2022 01:32:35 11/24/19 23 11/25/2022 URINA LYSIS , COMPL ETE W/REF RICHY TO CULTU RE calcium oxalate crystals MANY /hpf none or few abnormal Not Available [address], [address], 11/25/2022 01:32:35 11/24/19 23 11/25/2022 URINA LYSIS , COMPL ETE W/REF RICHY TO CULTU RE hyaline cast NONE SEEN /lpf none seen normal Not Available [address], [address], 11/25/2022 01:32:35 11/24/19 23 11/25/2022 URINA LYSIS , COMPL ETE W/REF RICHY TO CULTU RE comments MANY MUCOUS THREAD S Not Available [address], [address], 11/25/2022 01:32:35 11/24/19 23 11/25/2022 REFLE XIVE URINE CULTU RE reflexive urine culture CULTU RE INDIC ATED - RESUL TS TO FOLLO W Not Available [facility] [address] [address], [place], [address], 11/25/2022 01:32:36 11/24/1911/25/2022 TSH W/REF RICHY TO FT4 TSH w/reflex to FT4 0.77 mIU/L 0.40-4 .50 normal Not Available [facility] [address] [address], [place], [address], 11/25/2022 01:32:36 11/24/1911/25/2022 HEMOG LOBIN A1C hemoglobin A1C 5.1 %_of_ total _HGB <5.7 normal For the purpo se of screelodia matthews for the prese nce of diabe omar: <5.7% Consi stent with the absen ce of diabe omar 5.7-6 .4% Consi stent with incre ased risk for diabe omar (pred iabet es) > or =6.5% Consi stent with diabe omar This assay resul t is consi stent with a decre ased risk of diabe omar. Curre ntly, no conse nsus exist s mei gorman use of hemog lobin A1c for diagn osis of diabe omar in child jessa. Accor ding to Ameri can Diabe omar Ass[employer] iatio n (ADA) guide lines , hemog lobin A1c <7.0% repre sents optim al contr ol in non-p regna nt diabe tic patie nts. Diffe rent metri cs may apply to speci fic patie nt popul ation s. Stand ards of Medic al Care in Diabe omar(A DA). Not Available [facility] [place] [address] [address], [place], [address], 11/25/2022 01:32:37 11/24/1911/25/2022 CULTU RE, URINE , ROUTI NE culture, urine, routine SEE NOTE CULTU RE, URINE , ROUTI NE Micro Numbe r: [id number] Test Statu s: Final Speci men Sourc e: Urine Speci men Quali ty: Adequ ate Resul t: No Growt h Not Available [facility] [id number], [place], [address], 11/25/2022 01:32:38 05/19/2005/18/2022 XR, foot No observ ation record ed. [id number] , [place], [address], 10/21/2022 06:08:44 Result Notes None recorded. Problems Name Problem SNOMED Code Status Onset Date Resolution Date Notes Provider Name and Address Organization Details Recorded Time Undifferen tiated connective tissue disease 072964624 Completed 201805/20/2021 Not Available [facility] 3 06:02:45 Current tear of medial cartilage AND/OR meniscus of knee Active Not Available [facility] 3 06:02:45 Closed fracture of lateral malleolus 34636476 Active Not Available [facility] 3 06:02:45 Vitamin D deficiency 30151910 Active 2018 Not Available [facility] 3 06:02:45 Hypothyroi dism 02228174 Active 2018 Not Available [facility] 3 06:02:45 Fracture of lower leg 450425468 Active Not Available [facility] 3 06:02:45 Obesity 846164015 Active 2021 Not Available [facility] 3 06:02:45 Hyperlipid emia 14406724 Active 2018 Not Available [facility] 3 06:02:45 COVID-19 602163294 Active 2021 Not Available [facility] 3 06:02:46 Hypertensi ve disorder 83126186 Active 2022 Osmani Mccarthy MD [address], [address], [place], [address] , [facility] [employer] [facility] 3 17:36:03 Rheumatoid arthritis [id number] Active 2022 Osmani Mccarthy MD [address], [address], [place], [address] , [facility] 17:42:44 Problem Notes None recorded. Procedures Surgical History Date Name Laterality Status Provider Name and Address Organization Details Recorded Time 09/23/19 23 Most Recent Mammogram completed Priya Caldera RN [facility] 11/03/2022 17:16:47 09/23/19 23 Most Recent Bone Density completed Priya Caldera RN [facility] 11/03/2022 17:16:53 08/23/19 21 Date of Last Pap Smear completed Priya Caldera RN [facility] 11/03/2022 17:18:02 Tmj manipulation under anest completed Not Available [facility] 10/21/2022 05:56:21 Colonoscopy completed Not Available [facility] 10/21/2022 05:56:21 Imaging Results Imaging Date Name Status LastModified by Organiz ation Details LastModified Time 05/18/2022 XR, foot completed [id number], [place], [address], 10/21/2022 06:08:44 Procedure Notes None recorded. Medical Equipment None Reported. Allergies Allergen ID Allergen Name Allergen Category Reaction Reaction Severity Criticality Documentation Date Start Date Code Code System Note Provider Name and Address Organization Details Recorded Time 09431 Cipro medicatio n myalgias (muscle pain) Not available Not available 10/21/202266753 3 RxNorm Not Available [facility] 06:08:27 Medications Name Sig Start Date Stop Date Status Note LastModified by Organization Details LastModified Time celecoxib 200 mg capsule Take 1 capsule every day by oral route for 90 days. 11/19 completed Not Available Not Available Not Available atorvastati n 10 mg tablet Take 1 tablet every day by oral route for 90 days. active Not Available Not Available No t Available ofloxacin 0.3 % eye drops active Not Available Not Available Not Available hydrocodone 5 mg-acetamin ophen 325 mg tablet 10/03 completed Not Available Not Available Not Available prednisone 20 mg tablet TAKE 3 TABLETS BY MOUTH EVERY DAY FOR 5 DAYS 04/23 completed Not Available Not Available Not Available prednisone 5 mg tablet active Not Available Not Available Not Available azathioprin e 50 mg tablet active Not Available Not Available Not Available phentermine 37.5 mg tablet TAKE 1 TABLET BY MOUTH EVERY DAY IN THE MORNING active Not Available Not Available No t Available nifedipine ER 30 mg tablet,exte nded release 05/20 completed Not Available Not Available Not Available ciprofloxac in 500 mg tablet TK 1 T PO Q 12 H 01/28 completed Not Available Not Available Not Available levothyroxi ne 75 mcg tablet TK 1 T PO QD 2022 active Not Available Not Available Not Avai lable meloxicam 7.5 mg tablet 11/19 completed Not Available Not Available Not Available prednisolon e acetate 1 % eye drops,suspe nsion INSTILL 1 DROP INTO EACH EYE THREE TIMES DAILY FOR 7 DAYS active Not Available Not Available No t Available methotrexat e sodium 2.5 mg tablet 11/03 completed Not Available Not Available Not Available benzonatate 100 mg capsule TAKE 1 CAPSULE BY MOUTH EVERY 8 HOURS NEEDED 04/23 completed Not Available Not Available Not Available neomycin-po lymyxin-dex ameth 3.5 mg/mL-10,00 0 unit/mL-0.1 % eye drops INSTILL 1 DROP INTO LEFT EYE 4 TIMES DAILY FOR 7 DAYS active Not Available Not Available No t Available Synthroid 88 mcg tablet Take 1 tablet every day by oral route for 90 days. 11/05 completed Not Available Not Available Not Available diclofenac sodium 75 mg tablet,mynor yed release Take 1 tablet twice a day by oral route for 5 days. active Not Available Not Available No t Available folic acid 1 mg tablet active Not Available Not Available Not Available codeine 10 mg-guaifene sin 100 mg/5 mL oral liquid TAKE 7.5 ML BY MOUTH EVERY 4-6 HOURS NEEDED FOR COUGH. 04/23 completed Not Available Not Available Not Available metoprolol succinate ER 25 mg tablet,exte nded release 24 hr Take 0.5 tablets every day by oral route as directed for 90 days. active Not Available Not Available No t Available ergocalcife rol (vitamin D2) 1,250 mcg (50,000 unit) capsule TAKE 1 CAPSULE BY MOUTH ONCE WEEKLY WITH A MEAL active Not Available Not Available No t Available hydroxychlo roquine 200 mg tablet 05/20 completed Not Available Not Available Not Available polyethylen e glycol 3350 17 gram/dose oral powder 10/10 completed Not Available Not Available Not Available albuterol sulfate HFA 90 mcg/actuati on aerosol inhaler INHALE 2 PUFFS BY MOUTH EVERY 4 HOURS NEEDED 11/03 completed Not Available Not Available Not Available losartan 50 mg-hydrochl orothiazide 12.5 mg tablet Take 1 tablet every day by oral route for 90 days. 06/06 completed Not Available Not Available Not Available oxybutynin chloride 5 mg tablet TAKE 1/2 TABLET BY MOUTH TWICE DAILY active Not Available Not Available No t Available doxycycline hyclate 100 mg tablet TAKE 1 TABLET BY MOUTH TWICE DAILY FOR 10 DAYS 04/23 completed Not Available Not Available Not Available olmesartan 40 mg tablet Take 1 po daily 12/01 completed Not Available Not Available Not Available olmesartan 40 mg-hydrochl orothiazide 12.5 mg tablet Take 1 tablet every day by oral route for 90 days. 2022 active Not Available Not Available Not Avai lable metoprolol tartrate 25 mg tablet Take half tab as directed once a day. active Not Available Not Available No t Available Centrum active Not Available Not Avail able Not Available Amitiza 24 mcg capsule 10/10 completed Not Available Not Available Not Available hydrochloro thiazide 12.5 mg tablet Take 1 po daily 12/01 completed Not Available Not Available Not Available Belviq 10 mg tablet TK 1 T PO BID 10/10 completed Not Available Not Available Not Available Saxenda 3 mg/0.5 mL (18 mg/3 mL) subcutaneou s pen injector Inject 0.6mg subcutane ous daily for 1 week - then increase by 0.6mg weekly until at 3mg daily 01/28 completed Not Available Not Available Not Available BD Ultra-Fine Micro Pen Needle 32 gauge x 1/4 05/20 completed Not Available Not Available Not Available Shingrix (PF) 50 mcg/0.5 mL intramuscul ar suspension, kit ADM 0.5ML IM UTD 03/03 completed Not Available Not Available Not Available Afluria Qd 2019- (36 mos up)(PF)60 mcg (15 mcg x4)/0.5 mL IM syringe ADM 0.5ML IM UTD 03/03 completed Not Available Not Available Not Available Wegovy 0.25 mg/0.5 mL subcutaneou s pen injector Inject 0.25 mg every week by subcutane ous route as directed for 30 days. 2022 active Not Available Not Available Not Avai lable Paxlovid 300 mg (150 mg x 2)-100 mg tablets in a dose pack TK 2 NIRMATREL VIR TS AND 1 RITONAVIR T TOGETHER PO BID FOR 5 DAYS BID FOR 5 DAYS DIRECTED. HOLD ATORVASTA TIN 11/03 completed Not Available Not Available Not Available Vitals Date Recorded Body mass index (BMI) Body height Oxygen saturation Oxygen saturation in Arterial blood by Pulse oximetry Heart rate Body temperature Body weight Systolic blood pressure Diastolic blood pressure Provider Name and Address Organization Details Last Updated DateTime 2 35.9 kg/m2 154.94 cm 98 % 98 % 96 /min 97.3 [degF] 38923.5 5 g 124 mm[Hg] 80 mm[Hg] Not Available [facility] 3 05:59:59 Date Recorded Body mass index (BMI) Body height Oxygen saturation Oxygen saturation in Arterial blood by Pulse oximetry Heart rate Body temperature Body weight Systolic blood pressure Diastolic blood pressure Provider Name and Address Organization Details Last Updated DateTime 2 35 kg/m2 154.94 cm 95 % 95 % 84 /min 97.7 [degF] 27491.5 9 g 118 mm[Hg] 76 mm[Hg] Not Available [facility] 3 05:59:59 Date Recorded Body mass index (BMI) Body height Oxygen saturation Oxygen saturation in Arterial blood by Pulse oximetry Heart rate Body temperature Body weight Systolic blood pressure Diastolic blood pressure Provider Name and Address Organization Details Last Updated DateTime 2 35 kg/m2 154.94 cm 98 % 98 % 84 /min 97.2 [degF] 46549.5 9 g 118 mm[Hg] 74 mm[Hg] Not Available [facility] 3 06:00:00 Date Recorded Body height Body mass index (BMI) Body weight Heart rate Oxygen saturation Oxygen saturation in Arterial blood by Pulse oximetry Body temperature Respiratory rate Systolic blood pressure Diastolic blood pressure Provider Name and Address Organization Details Last Updated DateTime 3 154.94 cm 35.5 kg/m2 51886.3 7 g 90 /min 98 % 98 % 98.5 [degF] 16 /min 118 mm[Hg] 82 mm[Hg] Priya Caldera RN [facility] 17:20:05 Date Recorded Body height Body mass index (BMI) Body weight Body temperature Heart rate Oxygen saturation Oxygen saturation in Arterial blood by Pulse oximetry Respiratory rate Systolic blood pressure Diastolic blood pressure Provider Name and Address Organization Details Last Updated DateTime 3 154.94 cm 34.8 kg/m2 72920 g 98.1 [degF] 90 /min 97 % 97 % 16 /min 118 mm[Hg] 76 mm[Hg] Lakesha Wetzel RN [facility] 17:17:00 Social History Question Answer Notes LastModified by Organizat ion Details LastModified Time Tobacco Smoking Status Never Smoker Not Available [facility] 10/21/2022 05:55:17 Do You Have An Advance Directive? No Information not available 11/03/2022 What Is Your Level Of Alcohol Consumption? Occasional [id number] Information not available 10/21/2022 What Is Your Level Of Caffeine Consumption? Heavy [id number] Information not available 10/21/2022 How Much Tobacco Do You Chew? None [id number] Information not available 10/21/2022 In The 14 Days Before Symptom Onset, Have You Had Close Contact With A Laboratory-confi rmed COVID-19 While That Case Was Ill? No Information not available 11/03/2022 In The 14 Days Before Symptom Onset, Have You Had Close Contact With A Person Who Is Under Investigation For COVID-19 While That Person Was Ill? No Information not available 11/03/2022 Are You Currently Employed? Yes Information not available 11/03/2022 What Type Of Diet Are You Following? REGULAR Information not available 11/03/2022 Which Illicit Or Recreational Drugs Have You Used? None [id number] Information not available 10/21/2022 Do You Or Have You Ever Used E-cigarettes Or Vape? Never Used Electronic Cigarettes [id number] Information not available 10/21/2022 What Is The Highest Grade Or Level Of School You Have Completed Or The Highest Degree You Have Received? 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 No Information not available 11/03/2022 Do You Use Insect Repellent Routinely? Yes Information not available 11/03/2022 Where Do You Live? [place] Information not available 11/03/2022 Do You Have A Medical Power Of Wafer Cutter? No Information not available 11/03/2022 How Many Children Do You Have? 1 Information not available 11/03/2022 Do You Have Any Pets? Yes Information not available 11/03/2022 What Is Your Relationship Status? Information not available 11/03/2022 Do You Use Your Seat Belt Or Car Seat Routinely? Yes Information not available 11/03/2022 Do You Have Smoke And Carbon Monoxide Detectors In Your Home? Yes Information not available 11/03/2022 Are You Passively Exposed To Smoke? No Information not available 11/03/2022 Do You Or Have You Ever Used Smokeless Tobacco? Never Used Smokeless Tobacco [id number] Information not available 10/21/2022 Are There Any Smokers In Your House? No Information not available 11/03/2022 Do You Feel Stressed (tense, Restless, Nervous, Or Anxious, Or Unable To Sleep At Night)? [id number] Information not available 11/03/2022 Do You Use Sunscreen Routinely? Yes Information not available 11/03/2022 Have You Recently Traveled Abroad? No Information not available 11/03/2022 Are You Currently In School? Yes Information not available 11/03/2022 Sex: Unknown Functional Status Question Answer Note LastModified by Organizat ion Details LastModified Time What is your exercise level? Moderate [id number] Information not available 10/21/2022 Mental Status None recorded. Family History Relationship Description Onset Age of this Age Resolved Age Notes LastModified by Organization Details LastModified Time Mother Aneurysm [id number] Not available 10/21/2022 05:56:26 Mother Malignant tumor of breast [id number] Not available 10/21/2022 05:56:26 Father Malignant tumor of colon [id number] Not available 10/21/2022 05:56:26 Notes:Father had a pacemaker Medical History Condition Response ARTHRITIS Y THYROID DISEASE Y OBESITY Y BOWEL PROBLEMS Y HYPERTENSION Y HIGH CHOLESTEROL / HYPERLIPIDEMIA Y Gynecological History Statement/Question Response Abnormal Pap N Date of Last Pap Smear 08/23/2020 Most Recent Mammogram 09/23/2022 Most Recent Bone Density 09/23/2022 Obstetrics History GPAL:G 1 P 0 0 0 1 Type Value Living 1 Total 1 Immunizations Vaccine Type Date Status Note Provider Nam e and Address Organization Details Recorded Time Influenza, split virus, quadrivalent, preservative 2 completed Not Available [facility] 10/21/2022 06:08:16 SARS-COV-2 (COVID-19) vaccine, UNSPECIFIED 1 completed Not Available [facility] 10/21/2022 06:08:16 Influenza, split virus, quadrivalent, PF 0 completed Not Available [facility] 10/21/2022 06:08:16 pneumococcal polysaccharide PPV23 0 completed Not Available [facility] 10/21/2022 06:08:16 Past Encounters Encounter ID Performer Location Encounter Start Date Encounter Closed Date Diagnosis/Indication Diagnosis SNOMED-CT Code Diagnosis ICD10 Code Diagnosis Note [id number] [facility] [place] [address] 03/03/2021 00:00:00 03/03/2021 10:41:31 [id number] [facility] [place] [address] 05/20/2021 00:00:00 05/21/2021 07:57:35 [id number] [facility] [place] [address] 11/19/2021 00:00:00 11/20/2021 12:42:24 [id number] [facility] [place] [address] [place] [address] 12/17/2021 00:00:00 12/17/2021 17:16:12 [id number] [facility] [place] [address] [place] [address] 04/23/2022 00:00:00 04/23/2022 19:39:09 [id number] [facility] [place] [address] [place] [address] 06/08/2022 00:00:00 06/08/2022 18:14:19 [id number] Osmani Mccarthy MD [facility] [address] [place] [address] 11/03/2022 17:06:10 11/03/2022 18:01:38 Adult health examination [id number] Z00.00 Hypertensive disorder 38 344172 I10 Hyperlipidemia 06699136 E78.5 Hypothyroidism 52127222 E03.9 Obesity 196117075 E66.9 Rheumatoid arthritis 698 14818 M06.9 Vitamin D deficiency 347 10715 E55.9 [id number] Osmani Mccarthy MD [facility] [address] [place] [address] 12/01/2022 17:09:36 12/01/2022 17:39:30 Hypertensive disorder 51838217 I10 Hyperlipidemia 36776279 E78.5 Hypothyroidism 65319531 E03.9 Obesity 175546291 E66.9 Rheumatoid arthritis 698 78117 M06.9 Vitamin D deficiency 347 14947 E55.9 Health Concerns Section Related Observation LastModified by Organization Detai ls LastModified Time None Recorded Concern Status LastModified by Organization Details LastModified Time None Recorded Advance Directives Directive N: Payers Encounter Date Sequence Insurance Name Policy Number Policy [employer] Covered Member ID [employer] Member ID Guarantor Name 11/03/2022 1 [facility] [id number] Shannan Singh [id number] Shannan Singh 12/01/2022 1 [facility] [id number] Shannan Singh [id number] Shannan Singh Notes Date Note Type Note Provider Name and Address Organization Details Recorded Time 11/03/2022 text/html New pt visit:62 yo F is here to establish her care. Pt was seeing PCP at [facility] in the past.Doing overall well. Needs refill on her meds. Concerned about her wt and she is on Phentermine for last 6 months and wants to cont for few more months. Denies any problem with med. Pt has RA and polyarthritis and is f/u with Rheumat at [facility] for it.PMH, and reviewed with pt. Osmani Mccarthy MD [address] [facility], [facility] [address], [place], [address], [employer] 11/03/2022 17:59:58 12/01/2022 text/html Pt is here for f /u on her annual labs. Doing overall well. Leo is not covered with her insurance and she can't afford Plenity. Concerned about her wt and she is on Phentermine for last 6 months and wants to cont for few more months. Denies any problem with med. Pt has RA and polyarthritis and is f/u with Rheumat at [facility] for it. Osmani Mccarthy MD [address], [address], [place], [address], [employer] 12/01/2022 17:32:58 OBGyn Episode No OBEpisode recorded.
--- OUTSIDE RECORDS SUMMARY | 2024-11-22 16:20 | XMS_ITS | Referral Summary ---
Author Organization [facility] [address] [place] Address [address] [place] [id number] Care Team Providers Care Teaching Fellow Name Role Phone Jean-Pierre Mosquera MD Unavailable [phone] Adeline Rubio NP Primary Care Provider [phone] Allergies No known active allergies Medications levothyroxine (SYNTHROID) 75 mcg tablet Take 1 tablet (75 mcg total) by mouth daily 10/20/2023 Active olmesartan-hydr ochlorothiazide (BENICAR HCT) 40-12.5 mg per tablet Take 1 tablet by mouth daily 10/20/2023 Active atorvastatin (LIPITOR) 10 mg tablet Take 1 tablet (10 mg total) by mouth daily Active metoprolol tartrate (LOPRESSOR) 25 mg immediate release tablet Take 0.5 tablets (12.5 mg total) by mouth daily 10/20/2023 Active ergocalciferol (VITAMIN D) 50,000 unit capsule Take 1 capsule (50,000 Units total) by mouth once a week Active acetaminophen ER (TYLENOL) 650 mg 8 hr tablet Take 1 tablet (650 mg total) by mouth 2 (two) times a day Active br-gkk-nxntl acid-lutein 400-250 mcg tablet,chewable Take by mouth Active melatonin 10 mg tablet Active NIFEdipine (NIFEdipine CC) 30 mg 24 hr tablet Take 1 tablet (30 mg total) by mouth daily as needed Active folic acid (FOLVITE) 1 mg tablet Take 1 tablet by mouth once daily 90 tablet 3 03/08/2024 Active methotrexate 2.5 mg tablet TAKE 8 TABLETS BY MOUTH ONCE A WEEK 96 tablet 1 07/27/2024 Active adalimumab-ryvk 40 mg/0.4 mL auto-injector, kit Inject 40 mg under the skin every 14 (fourteen) days 2 each 3 10/05/2024 Active Active Problems Problem Noted Date Diagnosed Date Muscle fatigue 06/05/2024 Assessment & Plan (06/05/2024 3:54 PM CDT): Reports diffuse muscle weakness that occurs if she is active for a certain amount of time. Extremities will feel heavy and she reports some minor dyspnea. Rest will restore function slightly. Denies any lid lag, visual changes. Will check CK and inflammatory markers today but symptoms do not sound inflammatory. Would recommend discussion with her PCP - potentially may need to see neurologist. Seen with Dr. Mosquera. High risk medication use 12/20/2023 Assessment & Plan (08/21/2024 9:02 AM HOME SERVICE DEMONSTRATOR): Monitor routine labs while on immunosuppressive medication. 03/2021: Neg Hep B/C, Neg QuantGold Assessment & Plan (06/05/2024 11:49 AM CDT): Monitor routine labs while on immunosuppressive medication. 03/2021: Neg Hep B/C, Neg QuantGold Assessment & Plan (03/13/2024 10:28 AM CDT): Monitor routine labs while on immunosuppressive medication. Will check at next visit. 03/2021: Neg Hep B/C, Neg QuantGold Assessment & Plan (01/20/2024 3:47 PM CDT): Monitor routine labs while on immunosuppressive medication. 03/2021: Neg Hep B/C Assessment & Plan (12/20/2023 5:55 PM CDT): Monitor routine labs while on immunosuppressive medication. 03/2021: Neg Hep B/C Parotid gland enlargement 12/20/2023 Assessment & Plan (12/20/2023 6:07 PM CDT): Fullness along the R parotid gland with history of swelling. Recommend sucking on lemon drops/bitter candies with warm compress to right cheek. If worsens or develops fever would require imaging and possible antibiotics. Psoriatic arthritis 11/16/2023 Overview (11/25/2023): 11/2023 labs: Neg AVISE 10/2023 XRs: -Lt hand: Mild polyarticular osteoarthritis, osteopenia -Rt hand: mild osteoarthritis of multiple interphalangeal joints -CXR: unremarkable -Lspine: 4 mm of anterolisthesis of L4 on L5 and 4 mm retrolisthesis of L5 on S1, severe loss of intervertebral disc space height at L5-S1, mild loss of intervertebral disc space height throughout the remainder of the lumbar spine, moderate facet joint osteoarthritis -SI joints: unremarkable Assessment & Plan (08/21/2024 12:34 PM HOME SERVICE DEMONSTRATOR): Remains on SQ Humira q2 weeks and weekly PO MTX. Also began CoQ10 about 3 weeks ago. Notes reduction in hand stiffness/pain this past Wednesday without return of joint pain following moderate activity. Continues to have moderate amount of synovitis on exam with few tender PIP and DIP joints. CDAI 20. Will have her continue Humira SQ q2 weeks with 20mg PO MTX weekly and 1mg FA daily. Will have her take another short prednisone taper to reduce inflammation and allow Humira to work more effectively. She was amenable to the plan. Will check labs today. If she continues to have moderate CDAI would consider JakInh. To return in 3 months, sooner if needed. Assessment & Plan (06/05/2024 3:49 PM CDT): Began SQ Humira 6 weeks ago and continued MTX weekly - no change in symptoms yet. Hands continue to be swollen, sore and notes reduced fine motor function. Still with moderate amount of synovitis on exam. To continue current regimen to allow more time to take effect - 40mg SQ Humira q2 weeks, 20mg MTX PO weekly with 1mg FA daily. Routine labs today. Return in 2-3 months, sooner if needed. If no improvement at that time would consider William Inhibitor as an alternative biologic medication. Assessment & Plan (03/13/2024 10:32 AM CDT): Remains on 20mg MTX weekly with no discernable joint benefit and completed prednisone. Notes reduction of her prior trochanteric pain and continues to perform exercises at home. Hands are swollen again and experiencing joint pain rated at 8/10. Moderate synovitis throughout the hands. Questionable synovitis of the MTP joints vs edema. CDAI 41. Does not appear well controlled. Recommend initiating treatment with SQ Humira q.2 weeks and reviewed the potential side effects of the medication, including but not limited to infections, rash, injection site reactions. Reviewed dosing regimen as well - she was amenable to the plan. Will have her continue 20mg MTX weekly for now as we start biologic therapy - likely to reduce MTX dose at next visit vs change DMARD therapy. Will send out another prednisone taper once she calls the office with the quantity of prednisone she has left at home. To return in 2 months with labs at that time. Assessment & Plan (01/20/2024 3:51 PM CDT): Increased MTX to 20mg weekly after last visit but cannot appreciate any joint benefit. Still with joint pain affecting her hands, feet, back and lateral hips. Hands are swollen and stiff. Moderate synovitis on exam with several tender peripheral and axial joints. Ttp along greater trochanters, L>R. Discussed that her trochanteric pain would be unreliable to the psoriatic arthritis and that methotrexate would not treat it. Provided handout of IT band stretches that she can try to see if this would reduce the pain and also placed order for an ultrasound-guided left greater trochanteric bursa injection that she can schedule. Continue 20mg MTX weekly with 1mg FA daily to allow more time to take effect. She has prednisone at home but is unsure of the dose or quantity - asked that she call the office with this information and will discuss taper that she can take to address her current symptoms. Will check routine labs today. Return in 3 months, sooner if needed. Assessment & Plan (12/20/2023 6:05 PM CDT): Recent AVISE autoimmune testing was negative for auto antibodies. Radiographic imaging of her hands and lumbar spine demonstrated varying degrees of osteoarthritic changes with unremarkable SI joints and a normal CXR. She declined a hand US. Began treatment with 12.5mg MTX weekly after discontinuing AZA at last visit and notes reduction in her DIP joint pain. Still with lateral hip/trochanteric pain - had these injected years ago with benefit. Moderate synovitis on exam, slightly reduced since last visit, with fewer tender peripheral joints. Will have her increase MTX to 20mg daily due to extent of inflammation exam although it is encouraging that she is already noting benefit with only 1 month of treatment. Given her marisela and retro listhesis on Lspine XR and continued pain with check flexion/extension XRs to ensure stability of movement - may benefit from formal PT. To check CMP and CBC today again. Return in 4 weeks for re-evaluation. Seen with Dr. Mosquera. Assessment & Plan (11/17/2023 9:04 AM CDT): Ms. Singh is a 63yo female with PMH of HTN, HLD, GERD, cataracts, hypothyroidism who presents for evaluation/treatment of her inflammatory arthritis. Initially diagnosed with CTD and given HCQ with mild benefit she saw another phlebotomy services technician and diagnosis was changed to PsA (based on joint distribution despite neg HLA-B27 and no PsO) and medication was switched to AZA, although notes no benefit. She current takes tylenol arthritis 1300mg BID and low dose prednisone prn. Previously she was taking Aleve which helped but stopped for renal protection. Joints affected include her MCP- DIP joints, wrists, low back and hips. Appreciates swelling in her hands with difficulty performing ADLs in the morning - although swelling does not always resolve with time. Appreciates low back/hip stiffness especially when getting up from seated position. Additional symptoms include fatigue, brain fog, hair thinning (taking folic acid currently) and occasional dysphagia. No contributory FH. Moderate synovitis of bilateral hands (L wrist, MCP, PIP joints) and fullness along the right sternoclavicular joint. Ttp of several peripheral and axial joints with negative Earle tests. Will perform appropriate radiographs, serologies, and right hand US to try to elucidate the type of inflammatory arthritis that is clearly present. Will have her stop AZA as she notes no benefit and discussed initiating treatment with 12.5mg MTX weekly with 1mg FA daily - reviewed the side effects of the medication, including but not limited to increased risk of infection, GI upset, increased LFTs, mouth sores, rash, diarrhea, and/or blood count abnormalities. She was amenable to the plan. May continue Tylenol Arthritis 1300mg BID and recommend use of voltaren gel on sternoclavicular joint. Return in [address] Mosquera. Social History Tobacco Use Types Packs/Day Years Used Date Smoking Tobacco: Never Assessed Comments Unknown Sex and Gender Information Value Date Recorded Sex Assigned at Not on file Legal Sex Female 2:05 AM HOME SERVICE DEMONSTRATOR Gender Identity Not on file Sexual Orientation Not on file Last Filed Vital Signs Vital Sign Reading Time Taken Comments Blood Pressure 114/74 08/21/2024 10:31 AM HOME SERVICE DEMONSTRATOR Pulse 68 08/21/2024 10:31 AM HOME SERVICE DEMONSTRATOR Temperature - - Respiratory Rate - - Oxygen Saturation 95% 08/21/2024 10:31 AM HOME SERVICE DEMONSTRATOR Inhaled Oxygen Concentration - - Weight 86.5 kg (190 lb 9.6 oz) 08/21/2024 10:31 AM HOME SERVICE DEMONSTRATOR Height 154.9 cm (5' 1 ) 08/21/2024 10:31 AM HOME SERVICE DEMONSTRATOR Body Mass Index 36.01 08/21/2024 10:31 AM HOME SERVICE DEMONSTRATOR Plan of Treatment Not on file Insurance [facility] CHOICE PLUS [facility] CHOICE PLUS Care Teams Teaching Fellow Relationship Specialty Start Date End Date Adeline Rubio NP [address] [place] [address] PCP - General Cardiovascular Disease 11/02/23 Jean-Pierre Mosquera MD [address] [place] [address] Consulting Physician Rheumatology 11/02/23
--- OUTSIDE RECORDS SUMMARY | 2024-11-22 16:20 | XMS_ITS | Clinical Summary ---
Author Organization [facility] Address [address], [facility] [address] [place] [address] Phone Care Team Providers Care Putty Patcher Name Role Phone Adeline Rubio APRN, TRIMMER SAWYER Primary Care Provider Allergies Active Allergy Reactions Criticality Noted Date Comments Tetracycline Vomiting 06/01/2023 Medications polyethylene glycol (MIRALAX) Powder Mix the entire bottle with 64 oz of a clear liquid. Use as directed by the office for colonoscopy prep. 255 g 8 Active METOPROLOL TARTRATE PO Take 12.5 mg by mouth every morning. Active LEVOTHYROXINE SODIUM PO Take 75 mcg by mouth daily. Active LOSARTAN POTASSIUM-HCTZ PO Take by mouth daily. 40mg-12.5mg Active ergocalciferol (VITAMIN D) 44102 UNIT Capsule Take 50,000 Units by mouth once a week. Active naproxen sodium (ANAPROX) 220 MG Tablet Take 220 mg by mouth 2 times daily (with meals). Active Lorcaserin HCl (BELVIQ) 10 MG Tablet Take by mouth. Activ e atorvastatin (LIPITOR) 10 MG Tablet Take 10 mg by mouth daily. Active oxybutynin (DITROPAN) 5 MG Tablet Take 2.5 mg by mouth 2 times daily. Active azaTHIOprine (IMURAN) 50 MG TabletIndicatio ns:Arthritis Take 50 mg by mouth in the morning and at bedtime. Early evening and late evening Indications: Arthritis Active folic acid (FOLVITE) 1 MG Tablet Take 1 mg by mouth daily. Active acetaminophen (TYLENOL) 650 MG Tablet Controlled Release Take 650 mg by mouth in the morning and at bedtime. Active Multivitamin-Mi nerals Tablet Take 1 Tablet by mouth daily. Active Active Problems No known active problems Family History Medical History Relation Name Comments Cancer Father Colon Cancer Father Other-comment Maternal Aunt Brain tumor Breast Cancer Mother Cancer Mother Cerebral Anuerysm Mother Relation Name Status Comments Father Maternal Aunt Mother Social History Tobacco Use Types Packs/Day Years Used Date Smoking Tobacco: Never Smokeless Tobacco: Never Alcohol Use Standard Drinks/Week Comments Not Currently 0 (1 standard drink = 0.6 oz pur e alcohol) Comments Unknown Sex and Gender Information Value Date Recorded Sex Assigned at Not on file Legal Sex Female 10:58 PM CDT Gender Identity Not on file Sexual Orientation Not on file Last Filed Vital Signs Vital Sign Reading Time Taken Comments Blood Pressure 142/75 06/22/2023 9:20 AM CDT Pulse 72 06/22/2023 9:20 AM CDT Temperature 36 C (96.8 F) 06/22/2023 9:20 AM CDT Respiratory Rate 16 06/22/2023 9:20 AM CDT Oxygen Saturation 100% 06/22/2023 9:2 0 AM CDT Inhaled Oxygen Concentration - - Weight 79.4 kg (175 lb) 06/01/2023 3:00 PM CDT BMI incorrect due to technical error Height 154.9 cm (5' 1 ) 06/01/2023 3:00 PM CDT BMI incorrect due to technical error Body Mass Index 33.07 06/01/2023 3:00 PM CDT Plan of Treatment Health Maintenance Due Date Last Done Comments Mammogram 1960 Pap Smear 1981 Cervical Cancer Screening (CCS) 1990 HPV/Cotest 1990 Cologuard 2010 Immunochemical Fecal Occult Blood 2010 Respiratory Syncytial Virus (RSV) Immunization (Adult) (1 - Risk 60-74 years 1-dose series) 2020 Pneumococcal Immunization (50+ years) (2 of 2 - PCV) 10/03/2020 10/03/2019 Influenza Immunization (#1) 04/23/202405/23, 06/20/2022, 06/20/2022, Additional history exists SARS-COV-2 Immunization ( season) 2024 06/02/2023, 06/20/2022, 07/29/2021, Additional history exists Colonoscopy 06/22/2028 06/22/2023, 02/22, 10/18/2012 Colorectal Cancer Screening 06/22/2028 06/22/2023, 02/22, 10/18/2012 DTaP/Tdap/Td Immunization Discontinued 02/27/2016 TdaP Immunization Completed 02/27/2016 Pneumococcal Immunization Combined Discontinued 10/03/2019 Zoster Immunization Completed 07/27/2020, 0 Hepatitis C Virus (HCV) Screening Completed 04/17/2021 Hepatitis B Immunization Aged Out No longer eligible based on patient's age to complete this topic Meningococcal Immunization (ACWY) Aged Out No longer eligible based on patient's age to complete this topic Rotavirus Immunization Aged Out No lo nger eligible based on patient's age to complete this topic Procedures Procedure Name Priority Date/Time Associated Diagnosis Comments COLONOSCOPY Routine 03/21/2018 from Last 3 Months or Most Recently Relevant to Health Maintenance Results * COLONOSCOPY (03/21/2018) Neil Oshea DO PROCEDURE/MINOR SURGICAL ORDERA BLES Final Result from Last 3 Months or Most Recently Relevant to Health Maintenance Insurance Care Teams Putty Patcher Relationship Specialty Start Date End Date Adeline Rubio, STERILE INSTRUMENT TECHNICIAN, TRIMMER SAWYER [address] [place] [address] PCP - General Advanced Practice Nurse 03/30/23
--- OUTSIDE RECORDS SUMMARY | 2024-11-22 16:20 | XMS_ITS | Clinical Summary ---
Author Organization [facility] [address] [place] Address [address] [place] [phone] Care Team Providers Care Heel Sprayer First Name Role Phone Jean-Pierre Mosquera MD Unavailable [phone] Adeline Rubio NP Primary Care Provider [phone] Allergies No known active allergies Medications levothyroxine [...] mouth 2 (two) times a day Active ft-zhw-mhxzz acid-lutein 400-250 mcg tablet,chewable Take by mouth [...] 12/20/2023 Assessment & Plan (08/21/2024 9:02 AM C DEVELOPER): Monitor routine labs while on immunosuppressive medication. [...] unremarkable Assessment & Plan (08/21/2024 12:34 PM C DEVELOPER): Remains on SQ Humira q2 weeks and [...] HCQ with mild benefit she saw another hvac specialist and diagnosis was changed to PsA (based [...] in [address] Mosquera. Surgical History Surgery Date Site/Laterality Comments TEMPOROMANDIBULAR JOINT SURGERY Social History Tobacco Use Types Packs/Day Years Used Date Smoking Tobacco: Never Assessed Comments Unknown Sex and Gender Information Value Date Recorded Sex Assigned at Not on file Legal Sex Female 2:05 AM C DEVELOPER Gender Identity Not on file Sexual Orientation Not on file Obstetrics History Last Filed Vital Signs Vital Sign Reading Time Taken Comments Blood Pressure 114/74 08/21/2024 10:31 AM C DEVELOPER Pulse 68 08/21/2024 10:31 AM C DEVELOPER Temperature - - Respiratory Rate - - Oxygen Saturation 95% 08/21/2024 10:31 AM C DEVELOPER Inhaled Oxygen Concentration - - Weight 86.5 kg (190 lb 9.6 oz) 08/21/2024 10:31 AM C DEVELOPER Height 154.9 cm (5' 1 ) 08/21/2024 10:31 AM C DEVELOPER Body Mass Index 36.01 08/21/2024 10:31 AM C DEVELOPER Plan of Treatment Health Maintenance Due Date Last Done Comments Breast Cancer Screening-Mammogram 1960 Cervical Cancer Screening 1960 Colon Cancer Screening-Colonoscopy 1960 Depression Screening 1960 Hepatitis C Screening 1960 Hepatitis B Screening 1978 Regular Well Visit/Exam 18-64 1978 Pneumococcal vaccine <65 (2 of 2 - PCV) 10/03/2020 10/03/2019 Covid-19 Vaccine ( season) 2024 07/29/2021, 09/26/2020, 08/29/2020 Influenza Vaccine (Season Ended) 2025 05/26/2021, 05/11/2020, 10/03/2019 DTaP/Tdap/Td Vaccine (2 - Td or Tdap) 02/26/202602/2016 Zoster Vaccine Completed 07/27/2020, 05/11/2020 Insurance [facility] CHOICE PLUS Care Teams Heel Sprayer First Relationship Specialty Start Date End Date Adeline Rubio NP [address] [place] [address] PCP - General Cardiovascular Disease 11/02/23 Jean-Pierre Mosquera MD [address] [place] [address] Consulting Physician Rheumatology 11/02/23
--- OUTSIDE RECORDS SUMMARY | 2024-11-22 16:20 | XMS_ITS | Clinical Summary ---
Author Organization [facility] Address [address] [address] Care Team Providers Care Stitch Wheeler Name Role Phone Hermilo Lawson MD Primary Care Provider [phone] Source Comments [facility],non-owned Affiliates and Associated Physician Practices is amultiple site organization consisting of ambulatory clinics and hospital sitesin [place], [place], [place] and [place]. This disclosure is being madepursuant to the Care Everywhere program and may not contain all information available regarding this patient. Last updated 18.[facility] Allergies No known active allergies Medications * Be aware that medications may not be up to date on this document. Alwaysverify current medications with the patient. Medication Sig Dispensed Refills Start Date End Date Status ondansetron, disintegrating, (Zofran ODT) 4 MG tablet Take 1 (one) tablet by mouth every 6 hours as needed for Nausea/Vomiting Allow tablet to dissolve on the tongue 12 tablet 02/25/2023 Active Social History Tobacco Use Types Packs/Day Years Used Date Smoking Tobacco: Never Smokeless Tobacco: Never Tobacco Cessation:Counseling Given: Not Answered Alcohol Use Standard Drinks/Week Comments Never 0 (1 standard drink = 0.6 oz pur e alcohol) AUDIT-C Answer Date Recorded Q1: How often do you have a drink containing alc ohol? Never 02/25/2023 Average Number of Drinks Not on file 023 Frequency of Binge Drinking Not on file 01/2023 Sex and Gender Information Value Date Recorded Sex Assigned at Not on file Gender Identity Not on file Sexual Orientation Not on file Last Filed Vital Signs Vital Sign Reading Time Taken Comments Blood Pressure 130/77 02/25/2023 11:41 AM CDT Pulse 101 02/25/2023 11:41 AM CDT Temperature 37.7 C (99.8 F) 02/25/2023 11:41 AM CDT Respiratory Rate 18 02/25/2023 11:41 AM CDT Oxygen Saturation 99% 02/25/2023 11:41 AM CDT Inhaled Oxygen Concentration - - Weight 81.6 kg (180 lb) 02/25/2023 11:41 AM CDT Height 154.9 cm (5' 1 ) 02/25/2023 11:41 AM CDT Body Mass Index 34.01 02/25/2023 11:41 AM CDT Plan of Treatment Health Maintenance Due Date Last Done Comments COLOGUARD (AGES 45-75) - COLON CA SCREENING 1960 COLON MONITORING 1960 COLONOSCOPY - COLON CA SCREENING 1960 CT COLONOGRAPHY - COLON CA SCREENING 1960 Colorectal Cancer Screening 1960 FIT - COLON CA SCREENING 1960 FLEX SIG - COLON CA SCREENING 1960 LIPID TESTING 1960 MAMMOGRAM 1960 PAP SMEAR 1960 HIV SCREENING 1975 DTAP/TDAP/TD VACCINES (1 - Tdap) 1979 PNEUMOCOCCAL VACCINE 50+ (1 of 1 - PCV) 2010 ZOSTER VACCINE (1 of 2) 2010 COVID-19 VACCINE (5 - season) 2024 06/20/2022, 07/29/2021, 09/26/2020, Additional history exists INFLUENZA VACCINE (#1) 2024 2, 05/26/2021, 05/11/2020, Additional history exists DEPRESSION SCREENING 08/23/2024 Respiratory Syncytial Virus (RSV) Vaccine Pt: or over 60 yrs (1 - 1-dose 75+ series) 2035 HEPATITIS C SCREENING Completed 04/17/2021 HEPATITIS B VACCINE Aged Out No longe r eligible based on patient's age to complete this topic HIB VACCINE Aged Out No longer eligi ble based on patient's age to complete this topic HPV VACCINE Aged Out No longer eligi ble based on patient's age to complete this topic MENINGOCOCCAL (Group B) VACCINE SHARED DECISION-MAKING Aged Out No longer eligible based on patient's age to complete this topic MENINGOCOCCAL GROUPS A/C/Y/W VACCINE Aged Out No longer eligible based on patient's age to complete this topic PNEUMOCOCCAL VACCINE Aged Out No long er eligible based on patient's age to complete this topic Care Teams Stitch Wheeler Relationship Specialty Start Date End Date Hermilo Lawson MD [address] [place] [address] PCP - General 03/22/18
== END 2024-11-22 14:59 | disposition home or self-care (01) ==
LOC: ANHIMG 14:59
PROVIDERS: PCP Clinical Nurse Specialist; Visit Provider Nurse Practitioner
DX: Z12.31 Encounter for screening mammogram for malignant neoplasm of breast (principal); Z13.820 Encounter for screening for osteoporosis; M85.88 Other specified disorders of bone density and structure, other site
CPT/HCPCS: 77063; 77067; 77080

== ENCOUNTER 2025-04-16 15:19 | Outpatient (CLI) | payer OTHER, SELFPAY ==
--- OUTSIDE RECORDS SUMMARY | 2020-09-27 10:00 | XMS_ITS | Continuity of Care Document ---
Author Organization [facility] Address [address] [place] [address] [address] [place] [address] Phone Care Team Providers Care Medical Investigator Name Role Phone Kash Green MD Unavailable [...] Visual Field Examination(s) SCODI, Retina Office/outpatient Visit, [facility] Advance Directives Directive Yes / No Effective Date File Name No Information Encounters Encounter Description Practice Location Reason(s) For Visit Diagnoses Date Provider Providers Copied on Encounter [facility] Eye [facility], [address], [place], [place], [id number], [place] tel:[phone] SEC [place] ROSS Professional Complete Exam (chief complaint) High risk medication useOptic cupping of both eyesAge-relat ed nuclear cataract, bilateralPunc mcneill keratitis, left eye Fe-0 1 Peter Hewitt. [address] [facility], [address], [place], [place], [id number], [place]. tel:[phone] Specialist : Beatrice Calderon MD, [address], [place], [address]. tel:[phone] er Provider: Beatrice Calderon MD, [address] [place] [address], [address]. tel:[phone] erring Provider: Kash Andrews, [address] [facility] [address], [place], [address] . tel:[phone] Office/outpa tient Visit, [facility], [address] [place] [address] [address], [place], [place], [id number], [place] tel:[phone] SEC [place] Professional evaluation (chief complaint) High risk medication useAge-relate d nuclear cataract, bilateralLesi on of right eyelidOptic cupping of both eyes 0 Peter Hewitt. [address] [facility], [address], [place], [place], [id number], [place]. tel:[phone] Specialist : Beatrice Calderon MD, [address] [address], [place], [address]. tel:[phone] er Provider: Beatrice Calderon MD, [address] [address], [place], [address]. tel:[phone] erring Provider: Kash Andrews, [address] [facility] [address], [place], [address] . tel:[phone] [facility], [address], [place], [place], [id number], [place] tel:[phone] [facility] Professional No Information 0 Peter Hewitt. [address] [facility], [address], [place], [place], [address], [place]. tel:[phone] Family History Family Member Type Diagnosis Age At Onset Problem (finding) Family history of Retin al disease Problem (finding) Family history of glauc leatha Payers Payer name Insurance type Covered alliance party ID Authorguillermina patrick(s) [facility] Commercial CI [id number] Social History Type Description Quantity Date Captured [...]
--- NOTE | ~2025-04-16 | MR_ITS ---
EXAMINATION: MR brain/brain stem wo/w con DATE: 04/16/2025 16:16 INDICATION: Muscle weakness TECHNIQUE: Magnetic resonance imaging (MRI) of the brain and brainstem was performed without and with 18 mL Multihance intravenous contrast. Sequences included sagittal and axial T1-weighted SE, axial diffusion-weighted FS SE, axial 3D SWAN, axial T2-weighted FLAIR, and axial T2-weighted FSE. Postcontrast axial and coronal T1-weighted SE was obtained. Apparent diffusion coefficient (ADC) maps were created. COMPARISON: None. FINDINGS: There are no areas of restricted diffusion to suggest acute infarction. Small focus of susceptibility artifact at the left thalamus consistent with sequela of chronic microhemorrhage. No acute intracranial hemorrhage or abnormal intracranial mass lesion. There are scattered areas of nonspecific increased T2- weighted signal intensity in the cerebral white matter, predominantly involving the deep and periventricular white matter which is within normal limits for age. There are no intraparenchymal signal abnormalities seen on the other pulse sequences. The ventricles are symmetric and normal in size. There are no abnormal extra-axial fluid collections. Flow voids are seen in the cerebral arteries on the T2-weighted sequences consistent with their expected patency. Prominent mucosal thickening in the left frontal, ethmoid and maxillary sinuses with mild mucosal thickening in the right ethmoid sinus. There are bilateral mastoid effusions. Visualized orbits and soft tissues are unremarkable. There are no areas of abnormal enhancement on the post contrast images. IMPRESSION: 1. No acute intracranial process. 2. Mild to moderate scattered foci of nonspecific white matter T2 hyperintensity which is within normal limits for age and likely sequela of chronic small vessel ischemic disease. 3. Left-sided predominant sinus disease and bilateral mastoid effusions. Reviewed, dictated and finalized at location A. IMPRESSION: 1. No acute intracranial process. 2. Mild to moderate scattered foci of nonspecific white matter T2 hyperintensit y which is within normal limits for age and likely sequela of chronic small ves henry ischemic disease. 3. Left-sided predominant sinus disease and bilateral mastoid effusions.
--- OUTSIDE RECORDS SUMMARY | 2025-04-16 15:33 | XMS_ITS | Clinical Summary ---
Author Organization [facility] [employer] Address [address] [place] [address] Care Team Providers Care Support Dba Name Role Phone Hermilo Lawson MD Primary Care Provider [phone] Source Comments [facility] [employer],non-owned Affiliates and Associated Physician Practices is amultiple site organization consisting of ambulatory clinics and hospital sitesin [place], [place], [place] and [place]. This disclosure is being madepursuant to the Care Everywhere program and may not contain all information available regarding this patient. Last updated 18.[employer] Allergies No known active allergies Medications * Be aware that medications may not be up to date on this document. Alwaysverify current medications with the patient. ondansetron, disintegrating, (Zofran ODT) 4 MG tablet Take 1 (one) tablet by mouth every 6 hours as needed for Nausea/Vomiti ng Allow tablet to dissolve on the tongue [...] of Binge Drinking Not on file 01/2023 Comments No Sex and Gender Information Value Date Recorded Sex Assigned at Not on file Legal Sex Female 2:38 PM CDT Gender Identity Not on file [...] 11:41 AM CDT Height 154.9 cm (5' 1) 02/25/2023 11:41 AM CDT Body Mass Index [...] SCREENING 1960 LIPID TESTING 1960 MAMMOGRAM 1960 HIV SCREENING 1975 DTAP/TDAP/TD VACCINES (1 - Tdap) 1979 PNEUMOCOCCAL VACCINE 50+ (1 of 1 - PCV) 2010 ZOSTER VACCINE (1 of 2) 2010 COVID-19 VACCINE (5 - season) 2024 06/20/2022, 07/29/2021, 09/26/2020, Additional history exists DEPRESSION SCREENING 08/23/2024 INFLUENZA VACCINE (#1) 2025 2, 05/26/2021, 05/11/2020, Additional history exists Respiratory Syncytial Virus (RSV) Vaccine Pt: or [...] on patient's age to complete this topic Insurance [facility] Member Subscriber Plan / Payer (Ef fective 2017-Present) Name:Shannan Singh Relation to Subscriber:Self Name:SHANNAN SINGH Payer ID:[id number] (NAIC) Type:[employer] Address: [place] [id number] [facility] Care Teams Support Dba Relationship Specialty Start Date End Date Hermilo Lawson MD [address] [place] [id number] PCP - General 03/22/18
--- OUTSIDE RECORDS SUMMARY | 2025-04-16 15:33 | XMS_ITS | Clinical Summary ---
Author Organization [facility] [address] Address [address] [place] [address] Care Team Providers Care Ventilation Equipment Tender Name Role Phone Jean-Pierre Mosquera MD Unavailable [phone] Adeline Rubio NP Primary Care Provider [phone] Allergies No known active allergies Medications levothyroxine (SYNTHROID) 75 mcg tablet Take 1 tablet (75 mcg total) by mouth daily 4 Active olmesartan-hyd rochlorothiazi de (BENICAR HCT) 40-12.5 mg per tablet Take 1 tablet by mouth daily 4 Active atorvastatin (LIPITOR) 10 mg tablet Take 1 tablet (10 mg total) by mouth daily Active metoprolol tartrate (LOPRESSOR) 25 mg immediate release tablet Take 0.5 tablets (12.5 mg total) by mouth daily 4 Active ergocalciferol (VITAMIN D) 50,000 unit capsule Take 1 capsule (50,000 Units total) by mouth once a week Active acetaminophen ER (TYLENOL) 650 mg 8 hr tablet Take 1 tablet (650 mg total) by mouth 2 (two) times a day Active mg-wpf-pxpsa acid-lutein 400-250 mcg tablet,chewabl e Take by mouth Active melatonin 10 mg tablet Active NIFEdipine (NIFEdipine CC) 30 mg 24 hr tablet Take 1 tablet (30 mg total) by mouth daily as needed Active methotrexate 2.5 mg tablet TAKE 8 TABLETS BY MOUTH ONCE A WEEK 96 tablet 1 4 Active folic acid (FOLVITE) 1 mg tablet Take 1 tablet by mouth once daily 90 tablet 1 5 Active Rinvoq 15 mg extended release tablet TAKE 1 TABLET DAILY 30 tablet 3 5 Active folic acid (FOLVITE) 1 mg tablet Take 1 tablet by mouth once daily 90 tablet 3 4 03/20/20 25 Discontinued upadacitinib (Rinvoq) 15 mg extended release tablet Take 1 tablet (15 mg total) by mouth daily 30 tablet 3 5 03/27/20 25 Discontinued Active Problems Problem Noted Date Diagnosed Date [...] risk medication use 12/20/2023 Assessment & Plan (01/25/2025 11:55 AM CDT): Monitor routine labs while on immunosuppressive medication. 03/2021: Neg Hep B/C, Neg QuantGold Assessment & Plan (12/04/2024 8:17 AM CDT): Monitor routine labs while on immunosuppressive medication. 03/2021: Neg Hep B/C, Neg QuantGold Assessment & Plan (08/21/2024 9:02 AM REAL ESTATE PROFESSOR): Monitor routine labs while on immunosuppressive medication. [...] osteoarthritis -SI joints: unremarkable Assessment & Plan (01/25/2025 3:09 PM CDT): Off Humira due to lack of benefit. Began daily Rinvoq in late November and continued weekly PO MTX. Appreciates reduction in her hand pain and has been able to perform more yard work/activities but hands still remain swollen. Her MSK back pain has improved slightly but still reports pain along the right side. On exam she continues to have moderate synovitis of the bilateral hands with reduced number of tender joints. Will have her continue 15 mg Rinvoq once daily to allow more time to take effect as well a 20mg PO MTX weekly with 1mg FA daily. Will check labs today. Consider addition of leflunomide at next visit if she does not notice any additional benefit with Rinvoq. To return in 2-3 months, sooner if needed. Assessment & Plan (12/04/2024 12:47 PM CDT): Remains on Humira SQ q2 weeks and weekly PO MTX. She appreciates reduction in her DIP joint pain but continues to have pain throughout the MCP, PIP joints, achilles tendons and lower back. On exam she still have moderate amount of synovitis of the bilateral hands. Will have her stop Humira as there is no appreciable benefit. To continue 20mg MTX PO weekly with 1mg FA daily for now -likely to change to LEF in the near future. Recommend initiating treatment with Rinvoq 15mg once daily and reviewed the potential side effects including but not limited to URIs, nausea, elevated LFTs and anemias. Also reviewed the William inhibitor black box warning. She was amenable to the plan - will start approval process and she can start the sample Rinvoq bottle once we know status. Provided a Rinvoq handout for additional information. Discussed that her low back pain may be a combination of OA and PsA based on her symptoms and previous Lspine XRs. Pending response to medication changes she may follow up with her PCP to discuss pain management/ESIs. Will check labs including lipid panel and B12 today. To return in 6 weeks, sooner if needed. Assessment & Plan (08/21/2024 12:34 PM REAL ESTATE PROFESSOR): Remains on SQ Humira q2 weeks and [...] HCQ with mild benefit she saw another soc analyst and diagnosis was changed to PsA (based [...] in [address] Mosquera. Encounters Date Type Department Care Team Description 01/26/2025 Results Follow-Up [facility] [address] [place] [address] Park Andrade PA Comprehensive metabolic panel, CBC with auto differential 01/25/2025 11:30 AM CDT Office Visit [facility] [address] [place] [address] Park Andrade PA Psoriatic arthritis (HCC) (Primary Dx); High risk medication use from Last 3 Months Surgical History Surgery Date Site/Laterality Comments TEMPOROMANDIBULAR JOINT SURGERY Social History Tobacco Use Types Packs/Day Years Used Date Smoking Tobacco: Never Assessed Comments Unknown Sex and Gender Information Value Date Recorded Sex Assigned at Not on file Legal Sex Female 2:05 AM REAL ESTATE PROFESSOR Gender Identity Not on file Sexual Orientation Not on file Obstetrics History Last Filed Vital Signs Vital Sign Reading Time Taken Comments Blood Pressure 122/82 01/25/2025 11:13 AM CDT Pulse 67 01/25/2025 11:13 AM CDT Temperature - - Respiratory Rate - - Oxygen Saturation 97% 01/25/2025 11:13 AM CDT Inhaled Oxygen Concentration - - Weight 87.5 kg (193 lb) 01/25/2025 11:13 AM CDT Height 154.9 cm (5' 1) 01/25/2025 11:13 AM CDT Body Mass Index 36.47 01/25/2025 11:13 AM CDT Plan of Treatment Health Maintenance Due Date Last Done Comments Breast Cancer Screening-Mammogram 1960 Cervical Cancer Screening 1960 Colon Cancer Screening-Colonoscopy 1960 Depression Screening 1960 Hepatitis C Screening 1960 Hepatitis B Screening 1978 Regular Well Visit/Exam 18-64 1978 Pneumococcal vaccine <65 (2 of 2 - PCV) 10/03/2020 10/03/2019 Covid-19 Vaccine (4 - season) 2024 07/29/2021, 09/26/2020, 08/29/2020 Influenza Vaccine (#1) 2025 , 05/11/2020, 10/03/2019 DTaP/Tdap/Td Vaccine (2 - Td or Tdap) 02/26/202602/2016 Zoster Vaccine Completed 07/27/2020, 05/11/2020 Procedures Procedure Name Priority Date/Time Associated Diagnosis Comments CBC WITH AUTO DIFFERENTIAL Routine 01/25/2025 12:19 PM CDT Psoriatic arthritis (HCC) High risk medication use COMPREHENSIVE METABOLIC PANEL Routine 01/25/2025 12:19 PM CDT Psoriatic arthritis (HCC) High risk medication use from Last 3 Months Results * (ABNORMAL) CBC with auto differential (01/25/2025 12:19 PM CDT) WBC 3.7(L) 3.8 - 10.8 Thousand/u L [facility] RBC, POC 3.73(L) 3.80 - 5.10 Million/uL [facility] Hgb 13.3 11.7 - 15.5 g/dL [facility] Hct 39.2 35.0 - 45.0 % [facility] MCV 105.1(H) 80.0 - 100.0 fL [facility] MCH 35.7(H) 27.0 - 33.0 pg [facility] MCHC 33.9 32.0 - 36.0 g/dL [facility] Comment: For adults, a slight decrease in the calculated MCHC value (in the range of 30 to 32 g/dL) is most likely not clinically significant; however, it should be interpreted with caution in correlation with other red cell parameters and the patient's clinical condition. Rdw 12.1 11.0 - 15.0 % [facility] Platelets 277 140 - 400 Thousand/u L [facility] MPV 9.5 7.5 - 12.5 fL [facility] Neutrophils, abs 1,299(L) 1,500 - 7,800 cells/uL [facility] Lymphocytes, abs 1,846 850 - 3,900 cells/uL [facility] Monocyte abs 448 200 - 950 cells/uL [facility] Eosinophils, abs 78 15 - 500 cells/uL [facility] Basophils, abs 30 0 - 200 cells/uL [facility] Neutrophils 35.1 % [facility] Lymphocyte pct 49.9 % [facility] Monocytes 12.1 % [facility] Eosinophils 2.1 % [facility] Basophils 0.8 % [facility] Blood 01/25/2025 12:1 9 PM CDT 01/25/2025 12:19 PM CDT Park LOMAS LAB BLOOD ORDER DWAYNE Final Result [facility] [address] [place] [phone] * (ABNORMAL) Comprehensive metabolic panel (01/25/2025 12:19 PM CDT) [facility] Glucose 87 65 - 99 mg/dL [facility] Comment: Fasting reference interval BUN 21 7 - 25 mg/dL [facility] Creatinine 0.82 0.50 - 1.05 mg/dL [facility] eGFR 80 > OR = 60 mL/min/1.7 3m2 [facility] BUN/creat ratio SEE NOTE: 6 - 22 (calc) [facility] Comment: Not Reported: BUN and Creatinine are within reference range. Sodium 139 135 - 146 mmol/L [facility] Potassium, pl 4.3 3.5 - 5.3 mmol/L [facility] Chloride 102 98 - 110 mmol/L [facility] CO2 27 20 - 32 mmol/L [facility] Calcium 10.5(H) 8.6 - 10.4 mg/dL [facility] Protein, sr 7.0 6.1 - 8.1 g/dL [facility] Albumin 5.1 3.6 - 5.1 g/dL [facility] GLOBULIN 1.9 1.9 - 3.7 g/dL (calc) [facility] Alb/glob ratio 2.7(H) 1.0 - 2.5 (calc) [facility] Bilirubin, total 0.8 0.2 - 1.2 mg/dL [facility] Alk phos 76 37 - 153 U/L [facility] AST 26 10 - 35 U/L [facility] ALT (SGPT) 25 6 - 29 U/L [facility] Blood 01/25/2025 12:1 9 PM CDT 01/25/2025 12:19 PM CDT Park LOMAS LAB BLOOD ORDER DWAYNE Final Result [facility] [address] [place] [address] from Last [address] [facility] [employer] Care Teams Ventilation Equipment Tender Relationship Specialty Start Date End Date Adeline Rubio SITE LEADER [address] [place] [address] PCP - General Cardiovascular Disease 11/02/23 Jean-Pierre Mosquera MD [address] [place] [address] Consulting Physician Rheumatology 11/02/23
--- OUTSIDE RECORDS SUMMARY | 2025-04-16 15:33 | XMS_ITS | Clinical Summary ---
Author Organization [facility] Address [address], [facility] [address] [place] [address] Phone Care Team Providers Care Automation Qa Lead Name Role Phone Adeline Rubio APRN, NUTRITION INTERNSHIP Primary Care Provider Allergies Active Allergy Reactions [...] mouth daily. 40mg-12.5mg Active ergocalciferol (VITAMIN D) 98181 UNIT Capsule Take 50,000 Units by mouth [...] to technical error Height 154.9 cm (5' 1) 06/01/2023 3:00 PM CDT BMI incorrect due to technical error Body Mass Index 33.07 06/01/2023 3:00 PM CDT Plan of Treatment Health Maintenance Due Date Last Done Comments Mammogram 1960 Pap Smear 1981 Cervical Cancer Screening (CCS) 1990 HPV/Cotest 1990 Cologuard 2005 Immunochemical Fecal Occult Blood 2005 Respiratory Syncytial Virus (RSV) Immunization (Adult) (1 - Risk 60-74 years 1-dose series) 2020 Pneumococcal Immunization (50+ years) (2 of 2 - PCV) 10/03/2020 10/03/2019 SARS-COV-2 Immunization ( season) 2024 06/02/2023, 06/20/2022, 07/29/2021, Additional history exists Influenza Immunization (#1) 04/23/202505/23, 06/20/2022, 06/20/2022, Additional history exists Colonoscopy 06/22/2028 06/22/2023, 02/22, 10/18/2012 Colorectal Cancer Screening 06/22/2028 DTaP/Tdap/Td Immunization Discontinued 02/27/2016 TdaP Immunization Completed 02/27/2016 Pneumococcal Immunization Combined Discontinued 10/03/2019 Zoster Immunization Completed 07/27/2020, 0 Hepatitis C Virus (HCV) Screening Completed 04/17/2021 Hepatitis B Immunization Aged Out No longer eligible based on patient's age to complete this topic Human Papillomavirus (HPV) Immunization Aged Out No longer eligible based [...] to Health Maintenance Results * COLONOSCOPY (03/21/2018) us Neil Oshea DO PROCEDURE/MINOR SURGICAL ORDERA BLES Final Result from Last 3 Months or Most Recently Relevant to Health Maintenance [place] [address] [address] [place] [address] Care Teams Automation Qa Lead Relationship Specialty Start Date End Date Adeline Rubio, REGIONAL GEODETIC ADVISOR, NUTRITION INTERNSHIP [address] [place] [address] PCP - General Advanced Practice Nurse 03/30/23
== END 2025-04-16 15:20 | disposition home or self-care (01) ==
PROVIDERS: PCP Clinical Nurse Specialist; Visit Provider Clinical Nurse Specialist
DX: R29.898 Other symptoms and signs involving the musculoskeletal system (principal); M62.81 Muscle weakness (generalized); R90.82 White matter disease, unspecified
CPT/HCPCS: 70553; A9577

== ENCOUNTER 2025-05-15 12:51 | Outpatient (CLI) | payer OTHER, SELFPAY ==
--- OUTSIDE RECORDS SUMMARY | 2020-09-27 10:00 | XMS_ITS | Continuity of Care Document ---
Author Organization [facility] Address [address] [place] [address] [address] [address] Phone Care Team Providers Care Nursing Home Administrator Name Role Phone Kash Green MD Unavailable Unavailable Allergies, Adverse Reactions, Alerts Substance Reaction Status Criticality No Known Allergies Active No Inform ation Medications Medication Instructions Dosage Effective Dates (start - stop) Status Comments metoprolol succinate ER 25 mg tablet,extended release 24 hr take 1 tablet by oral route every day 25 MG - Active atorvastatin 10 mg tablet take 1 tablet by oral route every day 10 MG - Active Tirosint 88 mcg capsule take 1 capsule b y oral route every day 88 MCG - Active olmesartan 40 mg tablet take 1 tablet by oral route every day 40 MG - Active hydrochlorothiazide 12.5 mg capsule take 1 capsule by oral route every day 12.5 MG - Active Plaquenil 200 mg tablet take 1 tablet by oral route 2 times every day 200 MG - Active Vitamin D3 5,000 unit tablet take 1 tablet by oral route every day 1 tablet - Active Procedures Procedure Date Visual Field Examination(s) SCODI, Retina No Charge Optomap Fundus Photos 021 Eye Exam & Treatment Visual Field Examination(s) SCODI, Retina Office/outpatient Visit, [facility] Advance Directives Directive Yes / No Effective Date File Name No Information Encounters Encounter Description Practice Location Reason(s) For Visit Diagnoses Date Provider Providers Copied on Encounter [facility], [address], , [id number], [place] tel:[phone] SEC Feliberto ROSS Professional Complete Exam (chief complaint) High risk medication useOptic cupping of both eyesAge-relat ed nuclear cataract, bilateralPunc mcneill keratitis, left eye Fe-0 1 Peter Hewitt. [address] [facility], [address], [place], [place], [id number], [place]. tel:[phone] Specialist : Beatrice Calderon MD, [address], , [address]. tel:[phone] er Provider: Beatrice Calderon MD, [address] [place] [address], [address]. tel:[phone] erring Provider: Kash Andrews, [address] [facility] [address], [place], [address] . tel:[phone] Office/outpa tient Visit, [facility], [address] [place] [address] [address], , [id number], [place] tel:[phone] SEC Feliberto DC Professional evaluation (chief complaint) High risk medication useAge-relate d nuclear cataract, bilateralLesi on of right eyelidOptic cupping of both eyes 0 Peter Hewitt. [address] [facility], [address], [place], [place], [id number], [place]. tel:[phone] Specialist : Beatrice Calderno MD, [address] [address], [place], [address]. tel:[phone] er Provider: Beatrice Calderon MD, [address] [address], [place], [address]. tel:[phone] erring Provider: Kash Andrews, [address] [facility] [address], [place], [address] . tel:[phone] [facility], [address], , [id number], [place] tel:[phone] [facility] Professional No Information 0 Peter Hewitt. [address] [facility] [place] [facility], [address], [place], [place], [address], [place]. tel:[phone] Family History Family Member Type Diagnosis Age At Onset Problem (finding) Family history of Retin al disease Problem (finding) Family history of glauc leatha Payers Payer name Insurance type Covered libertarian ID Authorguillermina patrick(s) [facility] Commercial CI [id number] Social History Type Description Quantity Date Captured Comments Alcohol Use Details Caffeine Use Details Tobacco Use Status Current non-smoker Smoking Status Never smoker Non-Smoking Tobacco Use Details : No Details Available : No Details Available Sex Female Chief Complaint And Reason For Visit From encounter dated '09/27/2020 15:00'. Complete Exam (chief complaint). Description: The 60 year old female presents for evaluation of Complete Exam in the right eye and left eye. Hx Cataract OU, Cupping OU, Plaquenil use. Pt reports taking Plaquenil 2 po 200mg QD for Mixed connective tissue disease, follwoed by Dr. Beatrice Calderon. Pt reports stable vision in current CL. Pt wears a soft CL OS for near. Reason For Referral Reason For Referral No Information Plan Of Treatment Date Type Action Status Patient Education Cataracts: Care Instruc tions completed Patient Education Cataracts: Care Instruc tions completed History Of Present Illness Encounter Date Complaint History Of Prese nt Illness Complete Exam The 60 year old female presents for evaluation of Complete Exam in the right eye and left eye. Hx Cataract OU, Cupping OU, Plaquenil use. Pt reports taking Plaquenil 2 po 200mg QD for Mixed connective tissue disease, follwoed by Dr. Beatrice Calderon. Pt reports stable vision in current CL. Pt wears a soft CL OS for near. evaluation The 59 year old female presents for a Plaquenil evaluation. Patient has mixed connective tissue disease and has been taking Plaquenil since February. Patient wears a contact OS for reading. Patient states she needs a little more brighter light to read. Patient denies any changes in vision ou. Functional Status Date Functional Assessmen t No Information Instructions Date Instruction Additional Infor monserrat Impression/Plan Impression/Plan Assessments Type Assessment Date assessment High risk medication use 2020 assessment Optic cupping of both eyes b-0 assessment Age-related nuclear cataract, bi lateral assessment Punctate keratitis, left eye Sep Patient Care Teams Name Effective Dates (start - stop) Status Members No Information
--- OUTSIDE RECORDS SUMMARY | 2025-05-15 12:57 | XMS_ITS | Patient Health Record ---
Author Organization [facility] [employer] Address [address] [place] [address] Care Team Providers Care Station Baggage Agent Name Role Phone Beatrice Calderon Unavailable [phone] Reason For Referral No Information Medications Medication SIG (Take, Route, Frequency, Duration) Notes Start Date End Date Status hydroCHLOROthiazide 12.5 MG Oral Active olmesartan take 1 by oral route once oral 1 *Reorder from [facility] for eRx and Interaction Alerts* Active Vitamin D (Ergocalciferol) 58249 UNIT take two pills per week Oral Active Levothyroxine Sodium 88 MCG take 1 tablet (88 mcg) by oral route once daily Oral 1 Active Atorvastatin Calcium 10 MG take 1 tablet (10 mg) by oral route once daily Oral 1 Active Plan Of Treatment No Information Insurance Providers Payer Name Payer Address Payer Phone Subscriber Number Group Number Insured Name Patient Relationship to Insured Coverage Start Date Coverage End Date [place] [employer] [facility] [address] [address] [place] [address] [id number] Shannan Singh Self - patient is the insured 9 Medical (General) History Surgical History Surgery Date(Month/Year) TMJ surgery; 2018-12-27
--- OUTSIDE RECORDS SUMMARY | 2025-05-15 12:58 | XMS_ITS | Encounter Summary ---
Author Organization [facility] Address [address] [place] [address] Phone Care Team Providers Care Assisted Living Director Name Role Phone Jean-Pierre Mosquera MD Unavailable [phone] Adeline Rubio NP Primary Care Provider Encounter Details Date Type Department Care Team (Latest Contact Info) Description 05/03/2025 Results Follow-Up [facility] [address] [place] [address] Park Cohen PA [address] [place] [address] CBC with auto differential, Comprehensive metabolic panel Social History Tobacco Use Types Packs/Day Years Used Date Smoking Tobacco: Never Assessed Comments Unknown Sex and Gender Information Value Date Recorded Sex Assigned at Not on file 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
--- OUTSIDE RECORDS SUMMARY | 2025-05-15 12:58 | XMS_ITS | Clinical Summary ---
Author Organization [facility] Address [address] [place] [address] Care Team Providers Care Map And Chart Mounter Name Role Phone Hermilo Lawson MD Primary Care Provider [phone] Source Comments [facility],non-owned Affiliates and Associated Physician Practices is amultiple site organization consisting of ambulatory clinics and hospital sitesin [place], [place], [place] and [place]. This disclosure is being madepursuant to the Care Everywhere program and may not contain all information available regarding this patient. Last updated 18.[facility] Allergies No known active allergies Medications * [...] 1975 DTAP/TDAP/TD VACCINES (1 - Tdap) 1979 PAP SMEAR 1981 PNEUMOCOCCAL VACCINE 50+ (1 of 1 - PCV) 2010 ZOSTER VACCINE (1 of 2) 2010 DEPRESSION SCREENING 08/23/2024 COVID-19 VACCINE ( season) 2025 06/20/2022, 07/29/2021, 09/26/2020, Additional history exists INFLUENZA VACCINE (#1) 2025 2, 05/26/2021, 05/11/2020, [...] patient's age to complete this topic Insurance [facility] Care Teams Map And Chart Mounter Relationship Specialty Start Date End Date Hermilo Lawson MD [address] [place] [id number] PCP - General 03/22/18
--- OUTSIDE RECORDS SUMMARY | 2025-05-15 12:58 | XMS_ITS | Clinical Summary ---
Author Organization [facility] Address [address], [facility] [address] [place] [address] Phone Care Team Providers Care Granite Worker Name Role Phone Adeline Rubio APRN, SUPERVISOR ASSEMBLY ROOM Primary Care Provider Allergies Active Allergy Reactions [...] mouth daily. 40mg-12.5mg Active ergocalciferol (VITAMIN D) 08750 UNIT Capsule Take 50,000 Units by mouth [...] - PCV) 10/03/2020 10/03/2019 Influenza Immunization (#1) 04/23/202505/23, 06/20/2022, 06/20/2022, Additional history exists SARS-COV-2 Immunization ( season) 2025 06/02/2023, 06/20/2022, 07/29/2021, Additional history exists Colonoscopy [...] Most Recently Relevant to Health Maintenance [place] [address] [place] [address] Care Teams Granite Worker Relationship Specialty Start Date End Date Adeline Rubio, TRIMMER HELPER, SUPERVISOR ASSEMBLY ROOM [address] [place] [address] PCP - General Advanced Practice Nurse 03/30/23
--- OUTSIDE RECORDS SUMMARY | 2025-05-15 12:58 | XMS_ITS | Clinical Summary ---
Author Organization [facility] [address] Address [address] [place] [id number] Care Team Providers Care Maintenance Engineer Oil [employer] Name Role Phone Jean-Pierre Mosquera MD Unavailable [phone] Adeline Rubio NP Primary Care Provider [phone] Allergies No known active allergies Medications levothyroxine (SYNTHROID) 75 mcg tablet Take 1 tablet (75 mcg total) by mouth daily 4 Active olmesartan-hydr ochlorothiazide (BENICAR HCT) 40-12.5 mg [...] mouth 2 (two) times a day Active ja-qwy-vperc acid-lutein 400-250 mcg tablet,chewable Take by mouth [...] TABLET DAILY 30 tablet 3 5 Active methotrexate 2.5 mg tabletIndicatio ns:autoimmune disease Take 10 tablets (25 mg total) by mouth once a week 120 tablet 1 5 Active methotrexate 2.5 mg tablet TAKE 8 TABLETS BY MOUTH ONCE A WEEK 96 tablet 1 4 05/02/20 25 Discontinu ed(Reorder ) Active Problems Problem Noted Date Diagnosed Date [...] risk medication use 12/20/2023 Assessment & Plan (05/02/2025 1:02 PM CDT): Monitor routine labs while on immunosuppressive medication. Labs today. 03/2021: Neg Hep B/C, Neg QuantGold Assessment & Plan (01/25/2025 11:55 AM CDT): Monitor routine labs while on immunosuppressive medication. 03/2021: Neg Hep B/C, Neg QuantGold Assessment & Plan (12/04/2024 8:17 AM CDT): Monitor routine labs while on immunosuppressive medication. 03/2021: Neg Hep B/C, Neg QuantGold Assessment & Plan (08/21/2024 9:02 AM THROW OUT CLERK): Monitor routine labs while on immunosuppressive medication. [...] osteoarthritis -SI joints: unremarkable Assessment & Plan (05/02/2025 9:33 PM CDT): Began daily Rinvoq in late November and continued weekly PO MTX. Still feels that Rinvoq has reduced her joint pain and fatigue has gotten better as well. Reports newer issues of LE myalgias/cramping. Moderate amount of synovitis on exam. Does not appear to be controlled per exam. Will have her continue 15mg Rinvoq once daily and increase MTX to 25mg PO weekly with 1mg FA daily. Will check labs today. Consider addition of leflunomide at next visit if she does not notice any additional benefit with Rinvoq and/or changing to Bimzelx. To return in 4-6 weeks. Assessment & Plan (01/25/2025 3:09 PM CDT): [...] elevated LFTs and anemias. Also reviewed the Willima inhibitor black box warning. She was amenable [...] needed. Assessment & Plan (08/21/2024 12:34 PM THROW OUT CLERK): Remains on SQ Humira q2 weeks and [...] HCQ with mild benefit she saw another swim instructor and diagnosis was changed to PsA (based [...] Encounters Date Type Department Care Team Description 05/03/2025 Results Follow-Up [facility] [address] [place] [phone] Park Andrade PA CBC with auto differential, Comprehensive metabolic panel 05/02/2025 2:15 PM CDT Office Visit [facility] [address] [place] [phone] Park Andrade PA Psoriatic arthritis (HCC) (Primary Dx); High risk medication use from Last 3 Months Surgical History Surgery Date Site/Laterality Comments TEMPOROMANDIBULAR JOINT SURGERY Social History Tobacco Use Types Packs/Day Years Used Date Smoking Tobacco: Never Assessed Comments Unknown Sex and Gender Information Value Date Recorded Sex Assigned at Not on file Legal Sex Female 2:05 AM THROW OUT CLERK Gender Identity Not on file Sexual Orientation Not on file Obstetrics History Last Filed Vital Signs Vital Sign Reading Time Taken Comments Blood Pressure 120/58 05/02/2025 2:09 PM CDT Pulse 86 05/02/2025 2:09 PM CDT Temperature - - Respiratory Rate - - Oxygen Saturation 97% 05/02/2025 2:09 PM CDT Inhaled Oxygen Concentration - - Weight 88.5 kg (195 lb) 05/02/2025 2:09 PM CDT Height 154.9 cm (5' 1) 05/02/2025 2:09 PM CDT Body Mass Index 36.84 05/02/2025 2:09 PM CDT Plan of Treatment Health Maintenance Due Date Last Done Comments Breast Cancer Screening-Mammogram 1960 Cervical Cancer Screening 1960 Colon Cancer Screening-Colonoscopy 1960 Depression Screening 1960 Hepatitis C Screening 1960 Hepatitis B Screening 1978 Regular Well Visit/Exam 18-64 1978 Pneumococcal vaccine <65 (2 of 2 - PCV) 10/03/2020 10/03/2019 Covid-19 Vaccine ( season) 2025 07/29/2021, 09/26/2020, 08/29/2020 Influenza Vaccine (#1) 2025 , 05/11/2020, 10/03/2019 DTaP/Tdap/Td Vaccine (2 - Td or Tdap) 02/26/202602/2016, 11/12/2003 Zoster Vaccine Completed 07/27/2020, 05/11/2020 Procedures Procedure Name Priority Date/Time Associated Diagnosis Comments COMPREHENSIVE METABOLIC PANEL Routine 05/02/2025 3:27 PM CDT Psoriatic arthritis (HCC) High risk medication use CBC WITH AUTO DIFFERENTIAL Routine 05/02/2025 3:27 PM CDT Psoriatic arthritis (HCC) High risk medication use from Last 3 Months Results * (ABNORMAL) CBC with auto differential (05/02/2025 3:27 PM CDT) WBC 3.7(L) 3.8 - 10.8 Thousand/u L [facility] RBC, POC 3.15(L) 3.80 - 5.10 Million/uL [facility] Hgb 11.6(L) 11.7 - 15.5 g/dL [facility] Hct 34.5(L) 35.0 - 45.0 % [facility] MCV 109.5(H) 80.0 - 100.0 fL [facility] MCH 36.8(H) 27.0 - 33.0 pg [facility] MCHC 33.6 32.0 - 36.0 g/dL [facility] Comment: For adults, a slight decrease in the calculated MCHC value (in the range of 30 to 32 g/dL) is most likely not clinically significant; however, it should be interpreted with caution in correlation with other red cell parameters and the patient's clinical condition. Rdw 12.1 11.0 - 15.0 % [facility] Platelets 297 140 - 400 Thousand/u L [facility] MPV 9.5 7.5 - 12.5 fL [facility] Neutrophils, abs 1,465(L) 1,500 - 7,800 cells/uL [facility] Lymphocytes, abs 1,661 850 - 3,900 cells/uL [facility] Monocyte abs 496 200 - 950 cells/uL [facility] Eosinophils, abs 59 15 - 500 cells/uL [facility] Basophils, abs 19 0 - 200 cells/uL [facility] Neutrophils 39.6 % [facility] Lymphocyte pct 44.9 % [facility] Monocytes 13.4 % [facility] Eosinophils 1.6 % [facility] Basophils 0.5 % [facility] Blood 05/02/2025 3:27 PM CDT 05/02/2025 3:27 PM CDT Park LOMAS LAB BLOOD ORDER DWAYNE Final Result [facility] [id number] [place] [phone] * (ABNORMAL) Comprehensive metabolic panel (05/02/2025 3:27 PM CDT) Glucose 105(H) 65 - 99 mg/dL [facility] Comment: Fasting reference interval For someone without known diabetes, a glucose value between 100 and 125 mg/dL is consistent with prediabetes and should be confirmed with a follow-up test. BUN 20 7 - 25 mg/dL [facility] Creatinine 0.84 0.50 - 1.05 mg/dL [facility] eGFR 78 > OR = 60 mL/min/1.7 3m2 [facility] BUN/creat ratio SEE NOTE: 6 - 22 (calc) [facility] Comment: Not Reported: BUN and Creatinine are within reference range. Sodium 139 135 - 146 mmol/L [facility] Potassium, pl 3.9 3.5 - 5.3 mmol/L [facility] Chloride 101 98 - 110 mmol/L [facility] CO2 32 20 - 32 mmol/L [facility] Calcium 9.8 8.6 - 10.4 mg/dL [facility] Protein, sr 6.7 6.1 - 8.1 g/dL [facility] Albumin 4.9 3.6 - 5.1 g/dL [facility] GLOBULIN 1.8(L) 1.9 - 3.7 g/dL (calc) [facility] Alb/glob ratio 2.7(H) 1.0 - 2.5 (calc) [facility] Bilirubin, total 0.5 0.2 - 1.2 mg/dL [facility] Alk phos 87 37 - 153 U/L [facility] AST 27 10 - 35 U/L [facility] ALT (SGPT) 23 6 - 29 U/L [facility] Blood 05/02/2025 3:27 PM CDT 05/02/2025 3:27 PM CDT Park LOM[facility] LAB BLOOD ORDER DWAYNE Final Result [facility] [address], [place] [id number] from Last 3 Months Insurance [facility] [employer] [place] [id number] [employer] Care Teams Maintenance Engineer Oil Field Relationship Specialty Start Date End Date Adeline Rubio NP [address] [place] [address] PCP - General Cardiovascular Disease 11/02/23 Jean-Pierre Mosquera MD [address] [place] [address] Consulting Physician Rheumatology 11/02/23
--- NOTE | 2025-05-15 13:10 | NEURO_ITS ---
Impression: # Complains of muscle weakness. ? # Normal motor and sensory nerve conduction study. ? # Needle/ EMG exam revealed no neurogenic or myopathic changes. ? # Clinical correlation recommended. Nerve Conduction Studies ?Stim Site NR Peak (ms) P-T Amp (?V) Site1 Site2 Delta-P (ms) Dist (cm) Raulito (m/s) Left Sup Fibular Anti Sensory (Ant Lat Mall) 14 cm ? 3.7 14.4 14 cm Ant Lat Mall 2.4 16.0 43 Right Sup Fibular Anti Sensory (Ant Lat Mall) 14 cm ? 3.0 12.7 14 cm Ant Lat Mall 3.0 16.0 53 Left Sural Anti Sensory (Lat Mall) Calf ? 3.0 8.5 Calf Lat Mall 2.9 16.0 53 Right Sural Anti Sensory (Lat Mall) Calf ? 3.6 12.9 Calf Lat Mall 3.6 16.0 44 ?Stim Site NR Onset (ms) O-P Amp (mV) Site1 Site2 Delta-0 (ms) Dist (cm) Raulito (m/s) Left Peroneal Motor (Vastus Med) Ankle ? 3.5 3.5 Popit Ankle 6.9 37.0 54 Popit ? 10.4 2.3 Right Peroneal Motor (Vastus Med) Ankle ? 3.3 2.6 Popit Ankle 7.2 37.0 51 Popit ? 10.5 1.9 Left Tibial Motor (Abd Jacobson Brev) Ankle ? 3.8 6.3 Knee Ankle 6.5 38.0 58 Knee ? 10.3 1.8 Right Tibial Motor (Abd Jacobson Brev) Ankle ? 3.7 7.3 Knee Ankle 7.0 37.0 53 Knee ? 10.7 6.6 F Wave Studies ?NR F-Lat (ms) L-R F-Lat (ms) Left Peroneal (Mrkrs) (EDB) ? 42.54 2.53 Right Peroneal (Mrkrs) (EDB) ? 45.08 2.53 Left Tibial (Mrkrs) (Abd Hallucis) ? 47.86 2.78 Right Tibial (Mrkrs) (Abd Hallucis) ? 45.08 2.78 Electromyography ?Side Muscle Nerve Root Ins Act Fibs Amp Dur Recrt Comment Right AntTibialis Dp Br Fibular L4-5 Nml Nml Nml Nml Nml Right Gastroc Tibial S1-2 Nml Nml Nml Nml Nml Right Fibularis Long Sup Br Fibular L5-S1 Nml Nml Nml Nml Nml Right Flex Dig Long Tibial L5-S2 Nml Nml Nml Nml Nml Right Ext Dig Brev Dp Br Fibular L5, S1 Nml Nml Nml Nml Nml Right QuadratusFem QuadFemoris L4-5, S1 Nml Nml Nml Nml Nml Left AntTibialis Dp Br Fibular L4-5 Nml Nml Nml Nml Nml Left Gastroc Tibial S1-2 Nml Nml Nml Nml Nml Left Fibularis Long Sup Br Fibular L5-S1 Nml Nml Nml Nml Nml Left Flex Dig Long Tibial L5-S2 Nml Nml Nml Nml Nml Left Ext Dig Brev Dp Br Fibular L5, S1 Nml Nml Nml Nml Nml Left QuadratusFem QuadFemoris L4-5, S1 Nml Nml Nml Nml Nml
== END 2025-05-15 12:52 | disposition home or self-care (01) ==
LOC: ANHNEURO 12:53
PROVIDERS: PCP Clinical Nurse Specialist; Visit Provider Clinical Nurse Specialist
DX: R74.8 Abnormal levels of other serum enzymes (principal); M62.81 Muscle weakness (generalized); R29.898 Other symptoms and signs involving the musculoskeletal system
CPT/HCPCS: 95886; 95910